=== PATIENT | male | born 1955 | race Caucasian/White ===

== ENCOUNTER 2018-12-18 01:30 | Inpatient (IN) ==
[2018-12-18] MEDS ORDERED: NS 1,000 ML IV SCH ×2 (02:15→05:30)
[2018-12-18 02:41] LABS: BASO# 0.02 X1000 (0.0-0.2); BASO% 0.2 % (0.0-0.8); EOS# 0.03 X1000 (0.0-0.7); EOS% 0.2 % (0.0-10.0); HEMATOCRIT 36.9 % (42.0-52.0); HEMOGLOBIN 14.2 g/dL (14.0-18.0); IMM GRAN# 0.04 X1000 (0.0-0.04); IMM GRAN% 0.3 % (0.0-0.5); LYMPH# 0.88 X1000 (1.2-3.4); LYMPH% 7.3 % (20.5-51.1); MCH 38.6 PG (27-31); MCHC 38.5 g/dL (33-37); MCV 100.3 FL (81-99); MONO# 1.26 X1000 (0.11-0.59); MONO% 10.4 % (1.7-9.3); NEUT# 9.89 X1000 (1.4-6.5); NEUT% 81.6 % (42.2-75.2); PLT 111 X1000 (130-400); RBC 3.68 XMIL (4.7-6.1); RDW 13.2 % (11.5-14.5); WBC 12.12 X1000 (4.8-10.8)
[2018-12-18 02:58] LABS: ESTIMATED GFR > 60
[2018-12-18 02:58] LABS: BILIRUBIN URINE NEGATIVE (NEGATIVE); BLOOD URINE NEGATIVE (NEGATIVE); CLARITY CLEAR (CLEAR); COLOR AMBER; GLUCOSE URINE NEGATIVE (NEGATIVE); KETONE URINE NEGATIVE (NEGATIVE); LEUKOCYTES URINE 1+ (NEGATIVE); NITRITE URINE NEGATIVE (NEGATIVE); PH URINE 6.5; PROTEIN URINE TRACE mg/dL (NEGATIVE); UROBILINOGEN URINE 4 mg/dL
[2018-12-18 03:04] LABS: URINE EPITHELIAL CELLS <10 /HPF (<10); URINE RBC <10 /HPF (<10)
[2018-12-18 03:05] LABS: URINE BACTERIA 4+ /HFP
[2018-12-18 03:06] LABS: URINE SOURCE CLEAN CATCH
[2018-12-18] MEDS: NS 1,000 ML IV ONE ×2 (03:08→05:20)
[2018-12-18 03:18] LABS: AGAP 16; ALBUMIN 2.5 g/dL (3.5-5.0); ALKALINE PHOSPHATASE 78 U/L (32-122); BUN 5 mg/dL (8-22); CALCIUM 8.2 mg/dL (8.8-10.2); CHLORIDE 86 mmol/L (98-107); COSMO 241; CREATININE 0.9 mg/dL (0.7-1.2); GLUCOSE 89 mg/dL (70-104); GOT 76 U/L (10-34); GPT 25 U/L (10-44); POTASSIUM 3.1 mmol/L (3.5-5.1); SODIUM 121 mmol/L (136-145); TCO2 19 mmol/L (25-35); TOTAL PROTEIN 5.3 g/dL (6.3-8.3)
[2018-12-18 03:24] LABS: UR AMPHETAMINES QUAL NONE DETECTED (NONE DETECT); UR BARBITUATES QUAL NONE DETECTED (NONE DETECT); UR BENZODIAZEPIN QUAL NONE DETECTED (NONE DETECT); UR CANNABINOIDS QUAL NONE DETECTED (NONE DETECT); UR COCAINE QUAL NONE DETECTED (NONE DETECT); UR METHADONE QUAL NONE DETECTED (NONE DETECT); UR METHAMPHETAMINE QUAL NONE DETECTED (NONE DETECT); UR OPIATES QUAL NONE DETECTED (NONE DETECT); UR OXYCODONE QUAL NONE DETECTED (NONE DETECT); UR PCP QUAL NONE DETECTED (NONE DETECT); UR PROPOXYPHENE QUAL NONE DETECTED (NONE DETECT); UR TCA QUAL NONE DETECTED (NONE DETECT)
[2018-12-18] MEDS ORDERED: ROCEPHIN 1 GM in NS 50 ML IV ONE (03:26)
[2018-12-18] MEDS ORDERED: NS 1,000 ML IV ONE ×2 (03:29→05:45)
[2018-12-18] MEDS ORDERED: POTASSIUM CHLORIDE 20% LIQUID PO ONE ×2 (03:30→04:05)
--- NOTE | 2018-12-18 03:53 | PROVIDER DOCUMENTATION ---
This chart was entered by Shayy Tanner Scribe, acting as scribe for Olivier Kerr MD. HPI-General Adult - General Stated Complaint: Fall/weakness/vomiting Time Seen by Provider: 12/18/18 01:35 Source: patient Allergies/Adverse Reactions: Patient Allergies Allergy/AdvReac Type Severity Reaction Status Date / Time No Known Allergies Allergy Verified 12/18/18 02:59 Home Medications: Home Medication List Medication Instructions Recorded Confirmed Last Taken Type Ezetimibe 10 mg PO DAILY 12/18/18 12/18/18 12/17/18 History Pravastatin Sodium 40 mg PO DAILY 12/18/18 12/18/18 12/17/18 History - History of Present Illness -Gen Adult Nature of Presenting Problems: pt is a 63 yr old male presenting via EMS from home post fall. pt reports multiple recent falls, tonight after fall he was to weak to get self up. pt reports recent increased weakness. pt john LOC, no chest pain or shortness of breath. Location of Pain/Injury: reports: none (pt denies any pain or injury) Pain Radiation: reports: no radiation Quality of Pain: reports: none Severity: reports: moderate Onset/Duration: reports: gradual Timing: reports: getting worse Context/Activities at Onset: reports: light activity Modifying Factors: improves with: nothing Associated Symptoms: reports: fatigue. denies: arm pain, back/neck pain, chest pain, dizziness, fever/chills, genitourinary problems, headaches, shortness of breath, sensory/motor loss, weakness, trouble walking Similar Symptoms Previously?: Yes Recently seen or treated by another doctor?: No (pt reports he does have scheduled appointment with PCP in next week) Review of Systems - Adult - REVIEW OF SYSTEMS - ADULT Constitutional: reports: maral. denies: fever Eyes: denies: blurred vision, double vision Ears, Nose, Mouth & Throat: denies: ear pain, sinus problem, throat pain Cardiovascular: denies: chest pain, palpitations, syncope Respiratory: denies: cough, shortness of breath, wheezing Gastrointestinal: denies: abdominal pain, diarrhea, nausea, vomiting Genitourinary: reports: no symptoms reported Musculoskeletal: denies: back pain, muscle aches, muscle weakness, neck pain Integumentary: reports: no symptoms reported Neurological: reports: loss of balance. denies: dizziness/vertigo, headache/ migraines, syncope Psychiatric: reports: no symptoms reported Endocrine: reports: no symptoms reported Hematologic/Lymphatic: reports: no symptoms reported Allergic/Immunologic: reports: no symptoms reported All Other Systems: Reviewed and Negative Past History - Adult - PAST MEDICAL HISTORY-ADULT Review of Records: reports: Nursing Assessment Review, Medications Reviewed, Social history reviewed & non-contributory. Major Childhood Illnesses: reports: denies history Cardiovascular: reports: denies history Respiratory: reports: denies history Gastrointestinal: reports: denies history Obstetrical/Gynecological: reports: denies history Genitourinary: reports: denies history Musculoskeletal: reports: denies history Neurological: reports: denies history Endocrine/Immune: reports: denies history Other Conditions: reports: denies history - IMMUNIZATION STATUS Childhood Immunizations: See Nurse Assessment Flu Vaccine: See Nurse Assessment - FAMILY HISTORY Family History: reviewed, not pertinent - SOCIAL HISTORY Living Situation: family Physical Exam-General - PHYSICAL EXAM-ADULT Initial Vital Signs Reviewed: Yes - CONSTITUTIONAL General Appearance: alert, no apparent distress, obese - EYES Eyes: PERRL/EOMI - HEAD, EARS, NOSE, MOUTH & THROAT HENMT: normocephalic/atraumatic, moist mucous membranes - NECK Neck: non-tender, full range of motion, supple, normal inspection - RESPIRATORY Respiratory: chest non-tender, lungs clear, normal breath sounds - CARDIOVASCULAR Cardiovascular: normal peripheral pulses, no edema, no gallop, no JVD, no murmur , tachycardia - GASTROINTESTINAL (ABDOMEN) Abdominal Exam: normal bowel sounds, non tender, soft - LYMPHATIC Lymphatic: no adenopathy - MUSCULOSKELETAL Back Exam: normal inspection Extremity: normal range of motion, non-tender, normal inspection - SKIN Integumentary: normal color, normal turgor, warm/dry, ecchymosis ( 2 areas of ecchymosis each approx 3cm on left gluteous) - PSYCHIATRIC Psych/Mental Status: normal mood/affect, normal thought content, normal thought process, oriented x 3 Progress - PLAN OF CARE/RESULTS Progress/Plan/Lab Results: Vital Signs - 8 hr 12/18/18 01:41 12/18/18 01:58 Temperature 98.7 F 98.7 F Pulse Rate 66 115 H Respiratory Rate 18 18 Blood Pressure 101/58 101/58 O2 Sat by Pulse Oximetry 97 96 Laboratory Results - last 24 hr 12/18/18 12/18/18 12/18/18 02:25 02:25 02:30 WBC 12.12 H RBC 3.68 L Hgb 14.2 Hct 36.9 L MCV 100.3 H MCH 38.6 H MCHC 38.5 H RDW Std Deviation 13.2 Plt Count 111 L MPV 10.0 Immature Gran % (Auto) 0.3 Neut % (Auto) 81.6 H Lymph % (Auto) 7.[address] [place] % (Auto) 10.4 H Eos % (Auto) 0.2 Baso % (Auto) 0.2 Immature Gran # (Auto) 0.04 Neut # (Auto) 9.89 H Lymph # (Auto) 0.[address] [place] # (Auto) 1.26 H Eos # (Auto) 0.03 Baso # (Auto) 0.02 Sodium Potassium Chloride Carbon Dioxide Anion Gap BUN Creatinine Estimated GFR/1.73 m2 BUN/Creatinine Ratio Glucose Calculated Osmolality Calcium Total Bilirubin AST ALT Alkaline Phosphatase Total Protein Albumin Globulin Albumin/Globulin Ratio Urine Source CLEAN CATCH Urine Color MARIOLA Urine Clarity CLEAR Urine pH 6.5 Ur Specific [place] 1.010 Urine Protein TRACE A Urine Ketones NEGATIVE Urine Blood NEGATIVE Urine Nitrite NEGATIVE Urine Bilirubin NEGATIVE Urine Urobilinogen 4 Urine Microscopic RBC <10 Urine WBC 1+ A Urine Microscopic WBC 10-20 A Ur Epithelial Cells <10 Urine Bacteria 4+ Urine Glucose NEGATIVE Urine Opiates Screen NONE DETECTED Ur Oxycodone Screen NONE DETECTED Urine Methadone Screen NONE DETECTED U Propoxyphene Qual NONE DETECTED Ur Barbituates Screen NONE DETECTED Ur Tricyclics Screen NONE DETECTED Ur Phencyclidine Scrn NONE DETECTED Ur Amphetamines Screen NONE DETECTED U Methamphetamines Scrn NONE DETECTED U Benzodiazepines Scrn NONE DETECTED Urine Cocaine Screen NONE DETECTED U Cannabinoids Screen NONE DETECTED 12/18/18 02:30 WBC RBC Hgb Hct MCV MCH MCHC RDW Std Deviation Plt Count MPV Immature Gran % (Auto) Neut % (Auto) Lymph % (Auto) [place] % (Auto) Eos % (Auto) Baso % (Auto) Immature Gran # (Auto) Neut # (Auto) Lymph # (Auto) [place] # (Auto) Eos # (Auto) Baso # (Auto) Sodium 121 L Potassium 3.1 L Chloride 86 L Carbon Dioxide 19 L Anion Gap 16 BUN 5 L Creatinine 0.9 Estimated GFR/1.73 m2 > 60 BUN/Creatinine Ratio 6 Glucose 89 Calculated Osmolality 241 Calcium 8.2 L Total Bilirubin 3.40 H AST 76 H ALT 25 Alkaline Phosphatase 78 Total Protein 5.3 L Albumin 2.5 L Globulin 3.0 Albumin/Globulin Ratio 1.0 Urine Source Urine Color Urine Clarity Urine pH Ur Specific [place] Urine Protein Urine Ketones Urine Blood Urine Nitrite Urine Bilirubin Urine Urobilinogen Urine Microscopic RBC Urine WBC Urine Microscopic WBC Ur Epithelial Cells Urine Bacteria Urine Glucose Urine Opiates Screen Ur Oxycodone Screen Urine Methadone Screen U Propoxyphene Qual Ur Barbituates Screen Ur Tricyclics Screen Ur Phencyclidine Scrn Ur Amphetamines Screen U Methamphetamines Scrn U Benzodiazepines Scrn Urine Cocaine Screen U Cannabinoids Screen Orders Category Date Time Status CHEST-PORTABLE [RAD] Stat Exams 12/18/18 02:04 Taken CBC WITH DIFF [HEME] Stat Lab 12/18/18 02:30 Completed COMPREHENSIVE METABOLIC PANEL [CHEM] Stat Lab 12/18/18 02:[address] W/POSS RFLX CULT [URINALYSIS] Stat Lab 12/18/18 02:25 Completed URINE CULTURE [RM] Routine Lab 12/18/18 03:07 Ordered [address] DRUG SCREEN [address] Stat Lab 12/18/18 02:25 Completed 0.9% Sodium Chloride Inj [Ns] 1,000 ml Med 12/18/18 02:15 Active IV 1,000 mls/hr 0.9% Sodium Chloride Inj [Ns] 1,000 ml Med 12/18/18 02:06 Active IV 200 mls/hr Rocephin 1 gm/Ns IV Now Med 12/18/18 03:26 Ordered CefTRIAXONE [Rocephin] 1 gm 0.9% Sodium Chloride Inj [Ns] 50 ml IV NOW Result Diagrams: 12/18/18 02:30 12/18/18 02:30 - EKG 1 Time of EKG reading by physician:: 01:51 EKG Read and Signed by:: Olivier Kerr EKG Interpretation (*Must complete 3 of following elements*): Abnormal (can not rule out anteroseptal infarct-age undetermined) Rate: 119 Rhythm: sinus tachycardia with PACs with aberrant conduction Pyatt: left QRS: other (low voltage QRS) - CONSULTS/PCP/HOSPITALIST Notification #1 *Consult/PCP/Hospitalist*: [place] Time Discussed: 03:53 Consult Disposition: Admit Departure - Departure Date of Disposition Decision: 12/18/18 Time of Disposition Decision: 03:27 DIAGNOSIS: Hyponatremia, Weakness, Hypokalemia Urinary tract infection Qualifiers: Urinary tract infection type: site unspecified Hematuria presence: without hematuria Qualified Code(s): N39.0 - Urinary tract infection, site not specified Hypotension Qualifiers: Hypotension type: unspecified hypotension type Qualified Code(s): I95.9 - Hypotension, unspecified Disposition: ADMITTED INPATIENT 09 Certified Medical Emergency: Emergent Condition: Fair Referrals and Follow-Ups: None,PCP [Primary Care Provider] - - Critical Care Note This patient required my direct & personal management of CC.: No Attestation - Physician/ PEDRO Attestation Patient care was provided by Advanced Practice Provider:: No The physician spent face to face time with patient:: Yes Advanced Practice Provider documentation review:: Supervising physician onsite and consulted in the evaluation and care of this patient. The physician did have a face to face encounter with the patient. This chart was documented by the indicated scribe, (Shayy Tanner Scribe) and accurately reflects the services I performed and decisions made by me, Olivier Kerr MD, as attested by the provider's signature.
[2018-12-18] MEDS ORDERED: ZOFRAN IV PRN (03:55)
--- NOTE | 2018-12-18 03:57 | EKG Report ---
Test Performed on : 12/18/2018 01:51:34 AM Test Reason : weakness Blood Pressure : / mmHG Vent. Rate : 119 BPM Atrial Rate : 119 BPM P-R Int : 150 ms QRS Dur : 102 ms QT Int : 344 ms P-R-T Axes : 011 -32 009 degrees QTc Int : 483 ms Sinus tachycardia. with premature atrial complexes. with aberrant conduction. Left axis deviation Low voltage QRS Cannot rule out Anteroseptal infarct , age undetermined Abnormal ECG No previous ECGs available Unconfirmed Result
[2018-12-18] MEDS ORDERED: ZOFRAN ONE (04:08)
[2018-12-18] MEDS ORDERED: POTASSIUM CHLORIDE 20 MEQ/SWI 20 MEQ/100 ML IVPB IV ONE (05:17)
--- NOTE | 2018-12-18 06:17 | Diag Imaging Result Doc PS360 ---
EXAM: CHEST-PORTABLE HISTORY: weakness TECHNIQUE: Portable chest single view COMPARISON: None. FINDINGS: The lungs are well expanded. The heart is not enlarged. The vessels are not distended. There are no infiltrates. No effusion identified. IMPRESSION: Negative exam. Electronically signed by Jefferson Boone 12/18/2018 6:15 AM
[2018-12-18] MEDS ORDERED: POTASSIUM CHLORIDE 20% LIQUID PO SCH (08:00)
[2018-12-18 09:06] LABS: AGAP 10; BUN 5 mg/dL (8-22); CALCIUM 7.8 mg/dL (8.8-10.2); CHLORIDE 91 mmol/L (98-107); COSMO 247; CREATININE 0.8 mg/dL (0.7-1.2); ESTIMATED GFR > 60; GLUCOSE 94 mg/dL (70-104); POTASSIUM 3.8 mmol/L (3.5-5.1); SODIUM 124 mmol/L (136-145); TCO2 23 mmol/L (25-35)
--- NOTE | 2018-12-18 11:04 | HISTORY AND PHYSICAL ---
CHIEF COMPLAINT: Multiple falls, generalized weakness. HISTORY OF PRESENT ILLNESS: This is a 63-year-old gentleman with a history of hypertension, who presents to the emergency room complaining of multiple falls over the prior few weeks. He stated that these have increased over the last week. Prior to coming to the emergency room, he was too weak to get himself up out of the floor. Therefore, EMS was called. He did state that he has been vomiting off and on for 2 months, and he has had no workup, nor has he seen a physician about this. He was found to have a sodium of 121, as well as a potassium of 3.1. It is noted that he is on hydrochlorothiazide. He was given saline as well as potassium supplement, and is being admitted for further evaluation and treatment. PAST MEDICAL HISTORY: Hypertension, high cholesterol. SOCIAL HISTORY: He smokes about a pack a day. He does drink alcohol. He denies any illicit drug use. ALLERGIES: Corticosteroids with unknown reaction. HOME MEDICATIONS: Losartan/hydrochlorothiazide 100/25 one p.o. daily, pravastatin 40 mg p.o. daily. REVIEW OF SYSTEMS: Discussed with patient, with pertinent positives stated in the HPI. He denied any syncope or dizziness, any chest pain, any palpitations, any shortness of breath, cough, fever, chills, any night sweats, recent weight loss or weight gain, any diarrhea, constipation, black or bloody vomitus or stools, hematuria, dysuria, frequency, urgency. PHYSICAL EXAMINATION: General: This is a 63-year-old gentleman who is sitting up in the bed, eating breakfast in no distress. Vital Signs: Blood pressure is 113/63 with a heart rate of 100, respirations are 18, temperature is 98.6 degrees oral with room air saturations 98%. Eyes: Pupils are equal, round, react to light. EOMs are intact. Sclerae are anicteric. HENT: Head is normocephalic, atraumatic. Mucous membranes are moist. Neck: Supple with trachea midline. Cardiovascular: Regular rate and rhythm. S1, S2 appreciated. He does have bilateral lower extremity pretibial and pedal edema with peripheral pulses palpable x4 extremities. Pulmonary: Breath sounds are clear with no increased work of breathing noted. Chest rises and falls symmetrically with respiration. Gastrointestinal: Abdomen is soft, nontender, nondistended with bowel sounds in all 4 quadrants. Neurologic: He is alert and oriented x3. Skin: Warm and dry. IMAGING AND LABORATORY DATA: WBC is 12.12 with hemoglobin 14.2, hematocrit 36.9, and platelets of 111,000. Sodium is 121, potassium 3.1, BUN 5, creatinine 0.9 with a glucose of 89. Urinalysis reveals 10 to 20 microscopic white blood cells. Urine drug screen reveals none detected. Chest x- ray reveals negative exam. Lungs are well expanded. Heart is not enlarged. Vessels are not distended. There are no infiltrates. No effusion identified. ASSESSMENT: 1. Generalized weakness. 2. Multiple falls. 3. Hyponatremia. 4. Hypokalemia. 5. Urinary tract infection. 6. Hypertension. 7. High cholesterol. PLAN: The patient has been admitted to the medical/surgical floor and placed on telemetry, which will continue. We will recheck a BMP every 6 hours x3. Will get a CBC and CMP and magnesium in the morning. Will continue with gentle IV hydration. Urine culture is pending. Will continue Rocephin every 24 hours. Will consult Physical Therapy. For DVT prophylaxis, we will use SCDs, holding off on any anticoagulation as he has had multiple falls, and for GI prophylaxis, will use Prilosec. Further treatments pending hospital course. Dictated by CHANCE Real for Germain Gamez MD This chart was documented by, CHANCE Real and accurately reflects the services performed, treatment plan and medical decisions as attested by the providers signature Germian Gamez MD. cc: CHANCE Real MD
[2018-12-18] MEDS: ROCEPHIN 1 GM in NS 50 ML IV SCH (11:24)
[2018-12-18] MEDS: NS 1,000 ML IV SCH (11:31)
[2018-12-18] MEDS ORDERED: CALMOSEPTINE OINTMENT TOP PRN (13:08)
[2018-12-18 15:08] LABS: AGAP 10; BUN 5 mg/dL (8-22); CALCIUM 7.9 mg/dL (8.8-10.2); CHLORIDE 93 mmol/L (98-107); COSMO 249; CREATININE 0.7 mg/dL (0.7-1.2); ESTIMATED GFR > 60; GLUCOSE 111 mg/dL (70-104); POTASSIUM 3.7 mmol/L (3.5-5.1); SODIUM 125 mmol/L (136-145); TCO2 22 mmol/L (25-35)
[2018-12-18] MEDS ORDERED: ROCEPHIN 1 GM in NS 50 ML IV SCH (16:00)
[2018-12-18] MEDS ORDERED: TYLENOL PO PRN ×2 (18:26→18:52)
[2018-12-18 20:43] LABS: AGAP 9; BUN 5 mg/dL (8-22); CALCIUM 7.8 mg/dL (8.8-10.2); CHLORIDE 96 mmol/L (98-107); COSMO 252; CREATININE 0.7 mg/dL (0.7-1.2); ESTIMATED GFR > 60; GLUCOSE 97 mg/dL (70-104); POTASSIUM 3.7 mmol/L (3.5-5.1); SODIUM 127 mmol/L (136-145); TCO2 22 mmol/L (25-35)
--- NOTE | 2018-12-19 00:11 | HISTORY AND PHYSICAL ---
ADDENDUM: Patient seen and examined by myself, full note dictated and discussed with nurse practitioner. Patient has multiple falls recently. He is noted to have significant hyponatremia and mild hypokalemia. We will admit to the hospital, IV fluids, recheck his sodium, hold his losartan hydrochlorothiazide, follow his blood pressures. Further orders as needed. Please see full dictation. cc: Germain Gamez MD
[2018-12-19] MEDS: NS 1,000 ML IV SCH ×2 (00:46→15:18)
[2018-12-19] MEDS: PRILOSEC PO SCH (06:31)
[2018-12-19 06:44] LABS: HEMATOCRIT 34.4 % (42.0-52.0); MCH 39.3 PG (27-31); MCHC 37.8 g/dL (33-37); MCV 103.9 FL (81-99); RBC 3.31 XMIL (4.7-6.1); RDW 13.7 % (11.5-14.5); WBC 9.43 X1000 (4.8-10.8)
[2018-12-19 06:59] LABS: AGAP 10; ALBUMIN 2.1 g/dL (3.5-5.0); ALKALINE PHOSPHATASE 65 U/L (32-122); BUN 4 mg/dL (8-22); CALCIUM 7.8 mg/dL (8.8-10.2); CHLORIDE 97 mmol/L (98-107); COSMO 254; CREATININE 0.5 mg/dL (0.7-1.2); ESTIMATED GFR > 60; GLUCOSE 73 mg/dL (70-104); GOT 76 U/L (10-34); GPT 23 U/L (10-44); MAGNESIUM 1.6 mg/dL (1.5-2.7); POTASSIUM 3.6 mmol/L (3.5-5.1); SODIUM 129 mmol/L (136-145); TCO2 22 mmol/L (25-35); TOTAL PROTEIN 4.8 g/dL (6.3-8.3)
[2018-12-19] MEDS: ROCEPHIN 1 GM in NS 50 ML IV SCH (09:48)
[2018-12-19 11:16] LABS: AGAP 9; BUN 5 mg/dL (8-22); CALCIUM 7.8 mg/dL (8.8-10.2); CHLORIDE 97 mmol/L (98-107); COSMO 258; CREATININE 0.6 mg/dL (0.7-1.2); ESTIMATED GFR > 60; GLUCOSE 125 mg/dL (70-104); POTASSIUM 3.4 mmol/L (3.5-5.1); SODIUM 129 mmol/L (136-145); TCO2 23 mmol/L (25-35)
[2018-12-19 14:30] LABS: AGAP 7; BUN 5 mg/dL (8-22); CHLORIDE 98 mmol/L (98-107); COSMO 258; CREATININE 0.5 mg/dL (0.7-1.2); ESTIMATED GFR > 60; GLUCOSE 95 mg/dL (70-104); POTASSIUM 4.3 mmol/L (3.5-5.1); SODIUM 130 mmol/L (136-145); TCO2 25 mmol/L (25-35)
--- NOTE | 2018-12-19 15:53 | Diag Imaging Result Doc PS360 ---
US ABDOMEN-COMPLETE - 12/19/2018 INDICATION: elevated T bili TECHNIQUE: Pizano scale, color Doppler, and duplex evaluation of the abdomen was performed. COMPARISON: None FINDINGS: The liver appears somewhat small and hyperechoic. There is moderate ascites suspicious for cirrhosis and portal hypertension. No focal masses are appreciated sonographically. The IVC and aorta appear normal. The pancreas is unremarkable although the tail is obscured. The gallbladder is free of stones and sludge has a normal caliber wall. The common bile duct is not identified. The portal vein is patent with hepatopetal flow. Spleen is enlarged measuring 13.9 x 4.7 x 13.7 cm. The kidneys appear normal bilaterally. There is no hydronephrosis. IMPRESSION: 1.Hyperechoic liver with splenomegaly and moderate ascites are suggestive of portal hypertension . 2.No cholelithiasis. The common bile duct is unable be identified. Electronically signed by Patricia Dee 12/19/2018 3:51 PM
--- NOTE | 2018-12-19 23:34 | PROGRESS NOTE ---
DATE: 12/19/2018 SUBJECTIVE: Patient himself has no complaints. There is no family currently present. Denies any chest pain. Denies any shortness of breath. OBJECTIVE/PHYSICAL EXAM: Vital signs: Temperature 94, pulse 76, respiratory 20, BP 91/66. General: Patient is very pleasant to talk with. HEENT: Normocephalic. Neck: Supple. CARDIOVASCULAR: Regular rate. Chest: Clear. Abdomen: Soft. Extremities: Moves all extremities. Neurologic: No changes. ASSESSMENT: 1. Generalized weakness. 2. Multiple falls. 3. Hyponatremia, improved. Sodium is up to 130. 4. Hypokalemia. 5. Urinary tract infection. 6. Hypertension. PLAN: We will continue patient in the hospital. He has got an elevated total bilirubin of undetermined origin. His original was 3.1, currently down to 2.8. Ultrasound did not demonstrate anything other than portal hypertension. We will discuss with GI further plans. cc: Germain Gamez MD
[2018-12-20] MEDS: NS 1,000 ML IV SCH (05:36)
[2018-12-20] MEDS: PRILOSEC PO SCH (06:50)
[2018-12-20 08:53] LABS: HEMATOCRIT 35.6 % (42.0-52.0); HEMOGLOBIN 13.2 g/dL (14.0-18.0); MCH 38.2 PG (27-31); MCHC 37.1 g/dL (33-37); MCV 102.9 FL (81-99); RBC 3.46 XMIL (4.7-6.1); RDW 13.8 % (11.5-14.5); WBC 9.42 X1000 (4.8-10.8)
[2018-12-20 09:09] LABS: AGAP 10; ALBUMIN 2.4 g/dL (3.5-5.0); ALKALINE PHOSPHATASE 71 U/L (32-122); BUN 6 mg/dL (8-22); CHLORIDE 100 mmol/L (98-107); COSMO 261; CREATININE 0.5 mg/dL (0.7-1.2); ESTIMATED GFR > 60; GLUCOSE 77 mg/dL (70-104); GOT 97 U/L (10-34); GPT 29 U/L (10-44); POTASSIUM 3.9 mmol/L (3.5-5.1); SODIUM 132 mmol/L (136-145); TCO2 22 mmol/L (25-35)
[2018-12-20] MEDS: ROCEPHIN 1 GM in NS 50 ML IV SCH (12:10)
[2018-12-20 16:26] VITALS: BP 118/53
--- NOTE | 2018-12-21 00:06 | DISCHARGE SUMMARY ---
ADMISSION DATE: 12/18/2018 DISCHARGE DATE: 12/20/2018 DIAGNOSES: 1. Generalized weakness. 2. Multiple falls. 3. Hyponatremia, resolved. 4. Hypokalemia, resolved. 5. Urinary tract infection. 6. Hypertension. 7. High cholesterol. DIAGNOSTICS: 1. Chest x-ray revealed negative exam. Lungs are well expanded. Heart is not enlarged. Vessels are not distended. There are no infiltrates. No effusion identified. 2. Abdominal ultrasound revealed hyperechoic liver with splenomegaly and moderate ascites, are suggestive of portal hypertension. No cholelithiasis. The common bile duct is unable to be identified. 3. Urine culture revealed mixed elisabeth. HOSPITAL COURSE: Mr. Montoya presented to the emergency room complaining of multiple falls and generalized weakness. He was found to be hyponatremic. We held his diuretics as well as renal toxic medications. His sodium has increased from 121 to 132. He worked with Physical Therapy with a walker. He was able to ambulate 250 feet. A walker has been obtained for the patient. He states that his strength has increased and he feels more steady on his feet especially with the walker. DISCHARGE VITAL SIGNS: Blood pressure is 118/53 with a heart rate of 68, respirations 16, temperature 98.9 degrees with room air saturations 99%. DISCHARGE PHYSICAL EXAMINATION: Cardiovascular: Regular rate and rhythm. S1, S2 appreciated. He has no lower extremity edema. Peripheral pulses palpable x4 extremities. Pulmonary: Breath sounds are clear with no increased work of breathing noted. Gastrointestinal: Abdomen is soft, nontender, nondistended with bowel sounds in all 4 quadrants. Neurologic: He is alert and oriented. DISCHARGE MEDICATIONS: 1. Omnicef 300 mg p.o. b.i.d. 2. He has been instructed to hold his losartan/hydrochlorothiazide 100/25 as well as pravastatin 40 mg daily. Appointments will be made with Dr. Vora for the next week. At that time, he can have labs redrawn and Dr. Vora can give him guidance on restarting these medications. 3. He needs to follow up Dr. Calhoun for evaluation of his elevated bilirubin and his ultrasound results. Appointment will be scheduled and the patient will be called and notified of the time. 4. He has been instructed to call to be seen sooner or return to the emergency room for any dizziness, any increasing weakness, any syncope, any chest pain, palpitations, shortness of breath, cough, temperature greater than 101, any nausea, vomiting, diarrhea, constipation, black or bloody vomitus or stools, any hematuria, dysuria, frequency, urgency. 5. He is being discharged home in stable condition with family members. TIME SPENT: This is a greater than 30 minute discharge. Dictated by CHANCE Real for Germain Gamez MD This chart was documented by, CHANCE Real and accurately reflects the services performed, treatment plan and medical decisions as attested by the providers signature Germain Gamez MD. cc: CHANCE Real MD Dr Arora
--- NOTE | 2018-12-21 02:38 | DISCHARGE SUMMARY ---
ADMISSION DATE: 12/18/2018 DISCHARGE DATE: 12/20/2018 ADDENDUM: Patient seen and examined by myself. Full note dictated and discussed with nurse practitioner. On discharge, patient is awake, alert. He is in no distress. He is able to ambulate when he has a walker. We will discharge him home. Certainly would have preferred rehab but patient has declined. States he is going to go home. His sodium level is much improved, currently up to 132. Bilirubin is improving although still elevated. Discussed with him that he needs follow up outpatient with GI of choice. Please see full note. cc: Germain Gamez MD
== END 2018-12-20 18:35 | disposition home health service (06) | DRG 641 ==
LOC: P.ED 01:30 → P.MEDSURG 01:30 → OBSVTOIN 01:31 → SUATTDRO 01:31
PROVIDERS: ATTEND Family Medicine
CPT/HCPCS: 36415; 71010; 71045; 76700; 80048; 80053; 80104; 80301; 80305; 80307; 80320; 81001; 82055; 83605; 83735; 85025; 85027; 87088; 93005; 96361; 96365; 96375; 97162; 97530; 99285; A9270; G0431; G0434; G0477; G0480; G6040; J0696; J2405; J3480; J7030

== ENCOUNTER 2019-01-01 11:56 | Inpatient (IN) ==
--- NOTE | 2019-01-01 13:14 | PROVIDER DOCUMENTATION ---
This chart was entered by Hillary Olvera Scribe, acting as scribe for Faith Mercer CRNP. HPI-General Adult - General Chief Complaint: Return/Recheck Stated Complaint: MALE Time Seen by Provider: 01/01/19 12:33 Source: patient Allergies/Adverse Reactions: Patient Allergies Allergy/AdvReac Type Severity Reaction Status Date / Time Corticosteroids AdvReac Unknown Verified 12/25/18 09:11 (Glucocorticoids) Home Medications: Home Medication List Medication Instructions Recorded Confirmed Last Taken Type CefDINIR [Omnicef] 300 mg PO BID #10 cap 12/20/18 Unknown Rx - History of Present Illness -Gen Adult Nature of Presenting Problems: 63 yom pt dcd from hospital c/o increase weakness and request to go to rehab. c /o swelling to abd and lower legs also. Pt reports he was admitted on the for weakness and uti. Reports on the . Returns today and wants rehab. Reports sees Dr. Vora and has Ascites. Reports stopped alcohol 2 weeks ago. Review of Systems - Adult - REVIEW OF SYSTEMS - ADULT Constitutional: reports: see HPI, other (generalized weakness). denies: fever, fatique, night sweats Eyes: reports: no symptoms reported Ears, Nose, Mouth & Throat: denies: ear pain, sinus problem, throat pain Cardiovascular: reports: no symptoms reported Respiratory: denies: cough, shortness of breath, wheezing Gastrointestinal: reports: see HPI. denies: abdominal pain, diarrhea, nausea, vomiting Genitourinary: denies: dysuria, frequency, flank pain, frequent UTI's, hematuria Musculoskeletal: denies: bone pain, joint pain, joint swelling Integumentary: denies: mole changes, nail changes, rash Neurological: reports: no symptoms reported Psychiatric: reports: no symptoms reported Endocrine: reports: no symptoms reported Hematologic/Lymphatic: reports: no symptoms reported Allergic/Immunologic: reports: no symptoms reported All Other Systems: Reviewed and Negative Past History - Adult - PAST MEDICAL HISTORY-ADULT Review of Records: reports: Nursing Assessment Review, Medications Reviewed Major Childhood Illnesses: reports: denies history Cardiovascular: reports: denies history Respiratory: reports: denies history Gastrointestinal: reports: denies history Obstetrical/Gynecological: reports: denies history Genitourinary: reports: denies history Musculoskeletal: reports: denies history Neurological: reports: denies history Endocrine/Immune: reports: denies history Other Conditions: reports: denies history - IMMUNIZATION STATUS Childhood Immunizations: See Nurse Assessment Flu Vaccine: See Nurse Assessment - FAMILY HISTORY Family History: reviewed, not pertinent - SOCIAL HISTORY Smoking: less than 1 pack/day Provider spent 3-5 mins advising pt. on dangers of tobacco.: Discussed manners to quit use, and f/u contacts for add'l counseling. Substance Use: other (no) Physical Exam-General - PHYSICAL EXAM-ADULT Initial Vital Signs Reviewed: Yes - CONSTITUTIONAL General Appearance: alert, mild distress - EYES Eyes: PERRL/EOMI, other (jaundice) - HEAD, EARS, NOSE, MOUTH & THROAT HENMT: moist mucous membranes - NECK Neck: non-tender, full range of motion, supple, normal inspection - RESPIRATORY Respiratory: chest non-tender, lungs clear, normal breath sounds, no pleuratic chest pain, no respiratory distress, no accessory muscle use - CARDIOVASCULAR Cardiovascular: regular rate, rhythm, no edema, no gallop, no JVD - GASTROINTESTINAL (ABDOMEN) Abdominal Exam: other ([place]) - LYMPHATIC Lymphatic: no adenopathy - MUSCULOSKELETAL Extremity: normal range of motion, pedal edema (BLE from knees down 1+ pitting) - SKIN Integumentary: normal turgor, warm/dry, jaundice (global) - NEUROLOGIC Neurologic: grossly normal - PSYCHIATRIC Psych/Mental Status: normal mood/affect, normal thought content, normal thought process, oriented x 3 Progress - PLAN OF CARE/RESULTS Progress/Plan/Lab Results: Vital Signs - 8 hr 01/01/19 12:00 Temperature 98.4 F Pulse Rate 98 H Respiratory Rate 20 Blood Pressure 137/74 O2 Sat by Pulse Oximetry 99 Orders Category Date Time Status Saline Loc NOW Care 01/01/19 12:41 Active CHEST-2 VIEWS [RAD] Stat Exams 01/01/19 12:42 Ordered ALCOHOL BLOOD Stat Lab 01/01/19 12:43 Ordered CBC WITH ELECTRONIC DIFF [HEME] Stat Lab 01/01/19 12:41 Ordered CK PROFILE [SP CHEM] Stat Lab 01/01/19 12:41 Ordered COMPREHENSIVE METABOLIC PANEL [CHEM] Stat Lab 01/01/19 12:41 Ordered LIPASE [CHEM] Stat Lab 01/01/19 12:41 Ordered PRO B-NATRIURETIC PEPTIDE Stat Lab 01/01/19 12:41 Ordered TROPONIN T Stat Lab 01/01/19 12:[address] W/POSS RFLX CULT [URINALYSIS] Stat Lab 01/01/19 12:41 Uncollected EKG [EKG] Stat Ther 01/01/19 12:41 Ordered Result Diagrams: 01/01/19 12:50 01/01/19 12:50 - EKG 1 Time of EKG reading by physician:: 13:26 EKG Read and Signed by:: Argelia Olvera EKG Interpretation (*Must complete 3 of following elements*): Abnormal (cannot rule out Anteroseptal infarct age undertermined) Rate: 85 Rhythm: nsr [place]: normal QRS: other (low voltage) [place] Interval: normal ST Wave: normal - XRAY 1 XRAY Study: Chest ([facility] [address] [place] [address], [address], [place] [address] Department of Imaging Patient: ARGELIA BACA ODISADM Date: 01/01#: [id number] : 1955DM Status: PRE ERAcct#: [id number] Age/Sex : 63/MRoom/Bed: Loc: P.ED Ordering Physician: Faith Mercer Family Physician: James Vora DO Reason for Procedure: SOB Signed EXAM: CHEST-2 VIEWS 01/01/2019 HISTORY: SOB TECHNIQUE: PA and lateral chest COMMENT: There is bibasilar subsegmental atelectasis particularly in the costophrenic angle regions. Compared to 12/25/2018 this is slightly worse on the right. IMPRESSION: Bibasilar subsegmental atelectasis. Electronically signed by Adeel Hummel 01/01/2019 1:16 PM 01/01/19 1316 Interpreting Physician: Adeel Hummel MD Dictated Date/Time: 01/01/19 1315 cc: Faith Mercer; James Vora DO) XRAY Interpretation: See note - CONSULTS/PCP/HOSPITALIST Notification #1 *Consult/PCP/Hospitalist*: Dr. Gamez Time Discussed: 15:34 Reason/Comments: Admit Consult Disposition: Admit Departure - Departure Date of Disposition Decision: 01/01/19 Time of Disposition Decision: 15:34 DIAGNOSIS: Total bilirubin, elevated, Falls frequently, Elevated LFTs, Elevated brain natriuretic peptide (BNP) level Anemia Qualifiers: Anemia type: unspecified type Qualified Code(s): D64.9 - Anemia, unspecified Ascites Qualifiers: Ascites type: due to alcoholic cirrhosis Qualified Code(s): K70.31 - Alcoholic cirrhosis of liver with ascites Disposition: HOME 01 Certified Medical Emergency: Emergent Condition: Stable Referrals and Follow-Ups: James Vora DO [Primary Care Provider] - - Critical Care Note This patient required my direct & personal management of CC.: No Attestation - Physician/ PEDRO Attestation Patient care was provided by Advanced Practice Provider:: Yes Advanced Practice Provider:: Faith Mercer Advanced Practice Provider documentation review:: The Mid-level provider documentation, treatment plan and medical decision making was reviewed by the physician who agrees with all treatment and medical decision making by the P. The physician spent face to face time with patient:: No Advanced Practice Provider documentation review:: Supervising physician onsite and consulted in the evaluation and care of this patient. The physician did not have a face to face encounter with the patient. This chart was documented by the indicated scribe, (Hillary Olvera Scribe) and accurately reflects the services I performed and decisions made by me, Faith Mercer CRNP, as attested by the provider's signature.
--- NOTE | 2019-01-01 13:18 | Diag Imaging Result Doc PS360 ---
EXAM: CHEST-2 VIEWS 01/01/2019 HISTORY: SOB TECHNIQUE: PA and lateral chest COMMENT: There is bibasilar subsegmental atelectasis particularly in the costophrenic angle regions. Compared to 12/25/2018 this is slightly worse on the right. IMPRESSION: Bibasilar subsegmental atelectasis. Electronically signed by Adeel Hummel 01/01/2019 1:16 PM
[2019-01-01 13:22] LABS: BASO# 0.04 X1000 (0.0-0.2); BASO% 0.4 % (0.0-0.8); EOS% 4.3 % (0.0-10.0); HEMATOCRIT 35.4 % (42.0-52.0); HEMOGLOBIN 12.8 g/dL (14.0-18.0); IMM GRAN# 0.06 X1000 (0.0-0.04); IMM GRAN% 0.6 % (0.0-0.5); LYMPH# 1.72 X1000 (1.2-3.4); LYMPH% 18.5 % (20.5-51.1); MCH 38.1 PG (27-31); MCHC 36.2 g/dL (33-37); MCV 105.4 FL (81-99); MONO# 1.64 X1000 (0.11-0.59); MONO% 17.7 % (1.7-9.3); MPV 9.3 FL (7.4-10.4); NEUT# 5.43 X1000 (1.4-6.5); NEUT% 58.5 % (42.2-75.2); PLT 280 X1000 (130-400); RBC 3.36 XMIL (4.7-6.1); RDW 14.7 % (11.5-14.5); WBC 9.29 X1000 (4.8-10.8)
[2019-01-01 13:45] LABS: AGAP 11; ALBUMIN 2.6 g/dL (3.5-5.0); ALKALINE PHOSPHATASE 74 U/L (32-122); BUN 8 mg/dL (8-22); CALCIUM 8.5 mg/dL (8.8-10.2); CHLORIDE 100 mmol/L (98-107); CK PROFILE 69 U/L (24-204); COSMO 269; CREATININE 0.5 mg/dL (0.7-1.2); ESTIMATED GFR > 60; GLUCOSE 112 mg/dL (70-104); GOT 119 U/L (10-34); GPT 54 U/L (10-44); LIPASE 32 U/L (13-60); SODIUM 135 mmol/L (136-145); TCO2 25 mmol/L (25-35); TOTAL PROTEIN 5.5 g/dL (6.3-8.3)
[2019-01-01 13:55] LABS: BILIRUBIN URINE NEGATIVE (NEGATIVE); BLOOD URINE NEGATIVE (NEGATIVE); CLARITY SL. CLOUDY (CLEAR); COLOR YELLOW; GLUCOSE URINE NEGATIVE (NEGATIVE); KETONE URINE NEGATIVE (NEGATIVE); LEUKOCYTES URINE NEGATIVE (NEGATIVE); NITRITE URINE NEGATIVE (NEGATIVE); PROTEIN URINE NEGATIVE (NEGATIVE); UROBILINOGEN URINE 4 mg/dL
[2019-01-01 14:08] LABS: URINE BACTERIA 1+ /HFP; URINE EPITHELIAL CELLS <10 /HPF (<10); URINE WBC <10 /HPF (<10); URINE YEAST NONE SEEN /HPF
[2019-01-01 14:09] LABS: URINE CAST NONE SEEN /LPF; URINE CRYSTAL URIC ACID PRESENT /HPF; URINE SOURCE CLEAN CATCH
--- NOTE | 2019-01-01 14:21 | EKG Report ---
Test Performed on : 01/01/2019 1:26:04 PM Test Reason : SOB Blood Pressure : / mmHG Vent. Rate : 085 BPM Atrial Rate : 085 BPM P-R Int : 148 ms QRS Dur : 084 ms QT Int : 404 ms P-R-T Axes : 027 -24 001 degrees QTc Int : 480 ms Normal sinus rhythm. Low voltage QRS Cannot rule out Anteroseptal infarct , age undetermined Abnormal ECG No previous ECGs available Unconfirmed Result
[2019-01-01] MEDS ORDERED: SODIUM CHLORIDE 0.9% INJ SCH (18:30)
--- NOTE | 2019-01-01 18:34 | HISTORY AND PHYSICAL ---
CHIEF COMPLAINT: Is lower extremity edema, abdominal swelling and anorexia. HISTORY OF PRESENT ILLNESS: This is a 63-year-old gentleman with a history of hypertension, high cholesterol as well as moderate ascites and portal hypertension. He was discharged from [facility] on December 20, at that time we had strongly encouraged that he go to rehab. He did refuse. He states that he has had just increasing weakness since discharge, he has had increased abdominal and lower extremity edema and he feels that he needs rehab or further care. He does have a history of alcohol use and he states he did stop drinking 2 weeks ago although is not forthcoming on how much that he drank leading up to this. He does state that he has had anorexia and that this is increased over the last 2 to 3 weeks. The family members at the bedside state that they have to force him to eat and at that time he could only eat bites. He is noted to have some skin and sclerae jaundice. Family members stated that they were unaware of this, this was not present on his discharge December 20. Of note the patient does have an appointment to follow up with Dr. Calhoun on January 18 at 1:30, the stated that the patient has had diarrhea over the last 2 weeks. The patient seems surprised about the. PAST MEDICAL HISTORY: Hypertension, high cholesterol, cirrhosis, portal hypertension. PAST SURGICAL HISTORY: Denies. SOCIAL HISTORY: He smokes a pack a day, at 1 time he stated he quit alcohol 2 weeks ago another time he stated that he drinks alcohol daily. He denies any illicit drug use. ALLERGIES: Cortical steroids with unknown reaction. HOME MEDICATIONS: Lasix 20 mg p.o. daily, Klor-Con 10 mEq p.o. daily, losartan hydrochlorothiazide 100/25 daily. REVIEW OF SYSTEMS: Discussed with patient with pertinent positives stated in the HPI. He denied any syncope, dizziness, any chest pain, any palpitations, any shortness of breath, cough, fever, chills, any night sweats any abdominal pain, constipation, nausea, vomiting, any black or bloody vomitus or stools, any hematuria, dysuria, frequency, urgency. PHYSICAL EXAMINATION: GENERAL: This is a 63-year-old gentleman who is lying in the bed on the stretcher in the emergency room in no distress. VITAL SIGNS: Blood pressure is 119/69 with a heart rate of 85, respirations are 18, temperature is 97.9 degrees oral with O2 saturation 96% to 100%. HEENT: Pupils are equal, round, react to light. EOMs are intact. Sclerae have noted icterus. Head is normocephalic, atraumatic. Mucous membranes are moist. NECK: Supple with trachea midline. CARDIOVASCULAR: Regular rate and rhythm. S1 and S2 appreciated. He does have 2 to 3+ pitting edema from just above his knees down with peripheral pulses palpable x4 extremities. Calves are nontender to palpation. PULMONARY: Breath sounds are clear with no increased work of breathing noted. Chest rises and falls symmetric with respiration. ABDOMEN: Large, it is taut, is nontender with bowel sounds in all 4 quadrants. SKIN: Warm and dry. He does have jaundice with bilateral lower extremities from the knee down are reddened. NEUROLOGIC: He is alert, he is oriented to person, place, family members, but he does get confused on details. LABS: WBC is 9.2 with a hemoglobin 12.8, hematocrit 35.4, platelets of 280,000. Sodium is 135, potassium 4, BUN 8, creatinine 0.5, glucose of 112, total bilirubin is 2.9 with AST 119, ALT 54, and alkaline phosphatase 74. Troponin is less than 0.010. Total protein is 5.5 with albumin 2.6. Urinalysis is essentially negative. Blood alcohol reveals none detected. Chest x-ray reveals bibasilar subsegmental atelectasis which is slightly worse on the right than 12/25/2018. ASSESSMENT AND PLAN: 1. Elevated liver function tests. 2. Alcoholic cirrhosis with ascites. 3. Anemia most likely secondary to alcohol use. 4. Bilateral atelectasis. 5. Hypertension. 6. Generalized weakness. 7. Anorexia. PLAN: The patient will be admitted to the medical-surgical floor and placed on telemetry for close monitoring. neuro checks q.4 hours. incentive spirometer and antibiotic coverage of Zosyn. As he has had diarrhea will also start probiotics Will get stool for WBCs, C difficile toxin as well as occult blood. recheck a CBC and CMP in the morning. consult Physical Therapy. Further treatments pending hospital course. Dictated by CHANCE Real for Germain Gamez MD This chart was documented by, CHANCE Real and accurately reflects the services performed, treatment plan and medical decisions as attested by the providers signature Germain Gamez MD. cc: CHANCE Real MD [facility]
[2019-01-01] MEDS ORDERED: ZOFRAN IV PRN (19:04)
[2019-01-01] MEDS ORDERED: TYLENOL PO PRN (19:04)
[2019-01-01] MEDS: LASIX IV SCH (19:37)
[2019-01-01] MEDS: ZOSYN 3.375 GM in NS 50 ML IV SCH ×2 (19:37→23:24)
[2019-01-01] MEDS: PROTONIX IV SCH (19:37)
--- NOTE | 2019-01-01 21:27 | HISTORY AND PHYSICAL ---
ADDENDUM: Patient seen and examined by myself, full note dictated and discussed with nurse practitioner. Patient notes he stopped smoking, states he stopped drinking about 2 weeks ago, has been having increasing swelling in his bilateral lower extremities and abdomen. Notes his abdomen started hurting. Having some shortness of breath. Appears the patient has developed cirrhosis. He has ascites. Will admit him, place him on IV Lasix, will add Aldactone and will follow. cc: Germain Gamez MD
[2019-01-02] MEDS: ZOSYN 3.375 GM in NS 50 ML IV SCH ×5 (02:42→21:32)
[2019-01-02 06:31] LABS: BASO# 0.03 X1000 (0.0-0.2); BASO% 0.3 % (0.0-0.8); EOS# 0.14 X1000 (0.0-0.7); EOS% 1.4 % (0.0-10.0); HEMOGLOBIN 13.4 g/dL (14.0-18.0); IMM GRAN# 0.03 X1000 (0.0-0.04); IMM GRAN% 0.3 % (0.0-0.5); LYMPH# 1.33 X1000 (1.2-3.4); MCH 37.6 PG (27-31); MCHC 35.3 g/dL (33-37); MCV 106.7 FL (81-99); MONO% 16.7 % (1.7-9.3); MPV 9.2 FL (7.4-10.4); NEUT# 6.98 X1000 (1.4-6.5); NEUT% 68.3 % (42.2-75.2); PLT 290 X1000 (130-400); RBC 3.56 XMIL (4.7-6.1); RDW 14.7 % (11.5-14.5); WBC 10.21 X1000 (4.8-10.8)
[2019-01-02 06:46] LABS: AGAP 13; ALBUMIN 2.8 g/dL (3.5-5.0); ALKALINE PHOSPHATASE 71 U/L (32-122); BUN 7 mg/dL (8-22); CALCIUM 8.4 mg/dL (8.8-10.2); CHLORIDE 98 mmol/L (98-107); COSMO 271; CREATININE 0.6 mg/dL (0.7-1.2); ESTIMATED GFR > 60; GLUCOSE 112 mg/dL (70-104); GOT 116 U/L (10-34); GPT 54 U/L (10-44); POTASSIUM 3.6 mmol/L (3.5-5.1); SODIUM 136 mmol/L (136-145); TCO2 25 mmol/L (25-35); TOTAL PROTEIN 5.7 g/dL (6.3-8.3)
[2019-01-02] MEDS: KLOR-CON PO SCH (08:28)
[2019-01-02] MEDS: LASIX IV SCH ×3 (08:28→19:46)
[2019-01-02] MEDS ORDERED: ALDACTONE PO SCH (09:00)
[2019-01-02] MEDS ORDERED: CULTURELLE PO SCH (09:00)
[2019-01-02 09:37] LABS: ANISOCYTOSIS 2+; EOS 1 % (1-10); LYMPHS 11 % (21-51); MONO 9 % (1-9); SEGS 79 % (42-75)
[2019-01-02 14:06] LABS: INR 1.34; PROTIME 17.6 Seconds (11.0-16.0)
[2019-01-02 14:23] LABS: IRON SATURATION 35 %; TIBC 149 ug/dL; TOTAL IRON 52 ug/dL (53-167); UNBOUND IRON 97 ug/dL (112-346)
[2019-01-02 14:33] LABS: FREE T4 1.52 ng/dL (0.93-1.70); TSH 3.07 uIUmL (0.27-4.20)
[2019-01-02 15:03] LABS: FERRITIN 2045 ng/mL (30-400)
[2019-01-02] MEDS: PROTONIX IV SCH (18:05)
[2019-01-02] MEDS: OXY IR PO PRN (18:05)
--- NOTE | 2019-01-02 23:42 | PROGRESS NOTE ---
DATE: 01/02/2019 SUBJECTIVE: Patient notes he is still having lots of swelling in his lower extremities, lots of swelling in his abdomen, pain in his abdomen. Denies any fevers or chills. Denies any dysuria. OBJECTIVE: Vital signs: Temperature 98 degrees, pulse 70, respiratory 20, BP 124/65. General: Patient is awake, alert, currently in no respiratory distress. HEENT: Normocephalic. Neck: Supple. CARDIOVASCULAR: Regular rate. Chest: Clear. Abdomen: Soft. Positive fluid wave. No peritonitis signs. Extremities: Moves all extremities. He has 2+ edema in his lower extremities. Skin: Warm, dry. No rashes. ASSESSMENT: 1. Ascites. 2. Alcoholic cirrhosis. 3. Anemia. 4. Bilateral atelectasis. 5. Hypertension. PLAN: We will continue patient in the hospital. Transfer him to [facility]. Get GI involved. Patient very well may need paracentesis. cc: Germain Gamez MD
--- NOTE | 2019-01-03 01:11 | GASTROENTEROLOGY CONSULTATION ---
DATE: 01/02/2019 REASON FOR CONSULTATION: Cirrhosis with ascites. HISTORY OF PRESENT ILLNESS: Mr. Cisco Montoya is a 63-year-old gentleman with hypertension, hyperlipidemia, and recent diagnosis of decompensated alcoholic cirrhosis with jaundice and lower extremity edema, who presents with 2 weeks of progressive abdominal distention and lower extremity edema. The patient was recently hospitalized at an outside facility after having a fall. He was discharged on 12/20/2018. Since then he has noticed progressive abdominal distention despite taking Lasix 20 mg once daily. Other associated symptoms include decreased appetite and early satiety. He reports having 1 black stool about a week ago. He says that he was drinking almost 1.5 L of wine per day up until 2 weeks ago when he stopped smoking and drinking. He denies any bright red blood per rectum, hematemesis, confusion, shortness of breath, chest pain. REVIEW OF SYSTEMS: As per HPI, otherwise 12-point review of systems is negative. PAST MEDICAL HISTORY: Hypertension, hyperlipidemia, cirrhosis and ascites. PAST SURGICAL HISTORY: None. FAMILY HISTORY: No family history of liver disease. SOCIAL HISTORY: The patient reports drinking about 3 L of wine in 2-1/2 days daily. I have drank "most of my life," he says. No drug use. MEDICATIONS: Potassium, Lasix. ALLERGIES: No known drug allergies. PHYSICAL EXAMINATION: Vital Signs: Temperature 98.9 degrees, heart rate 92, blood pressure 117/62, O2 saturation 99% on room air. General: The patient is awake, alert, oriented, no acute distress, chronically ill-appearing. HEENT: Sclerae with mild icterus. Moist mucous membranes. Neck: No JVD. No lymphadenopathy. Cardiac: Regular rate and rhythm. No murmurs. Lungs: Clear to auscultation bilaterally. Abdomen: Obese, distended, tympanic anteriorly with bulging flanks and ascites. Normoactive bowel sounds. Extremities: Lower extremities with 1-2+ edema up to the shins bilaterally. Neurologic: Nonfocal. Asterixis negative. LABORATORY DATA: White count is 10.2, hemoglobin 13.4, platelets of 290,000. INR of 1.34. Sodium 136, potassium 3.6, chloride 98, bicarbonate 25, BUN 7, creatinine 0.6, glucose 112, iron 322, TIBC 149, ferritin 2045. Total bilirubin 2.9, AST 116, ALT 54, alkaline phosphatase 71. Troponin negative. CK 69, albumin 2.8, lipase 32, vitamin B12 980, folate 4.5. UA negative. Alcohol negative. Chest x-ray shows bibasilar subsegmental atelectasis. ASSESSMENT AND PLAN: Mr. Cisco Montoya is a 63-year-old gentleman who presents with worsening decompensated alcoholic cirrhosis in the setting of recent alcohol use. He complains of increased abdominal distention and lower extremity edema. The patient denies ever having a paracentesis in the past, and been on low-dose Lasix. He was started on IV Lasix here in the hospital; however, given his decompensated liver disease I would prefer oral diuretics. We will switch him from IV Lasix and Aldactone to oral medications including 40 mg of Lasix and 100 mg of Aldactone. Low- sodium diet. We will get a diagnostic and therapeutic paracentesis tomorrow, as well as an abdominal ultrasound to verify cirrhosis and rule out hepatoma. The patient does not have any evidence of encephalopathy. No evidence of overt GI bleeding although he reports having a black stool 1 week ago. LFTs show 2:1 ratio of AST to ALT consistent with alcoholic liver disease. He had some mild coagulopathy, from cirrhosis vs nutritional. Hemoglobin is normal. He does have some folate deficiency, which we will replete. Thank you for this consultation. We will follow with you. Please call with any questions or concerns. RAMON
[2019-01-03 06:12] LABS: BASO# 0.04 X1000 (0.0-0.2); BASO% 0.4 % (0.0-0.8); EOS# 0.28 X1000 (0.0-0.7); EOS% 2.6 % (0.0-10.0); HEMATOCRIT 34.5 % (42.0-52.0); HEMOGLOBIN 12.1 g/dL (14.0-18.0); IMM GRAN# 0.04 X1000 (0.0-0.04); IMM GRAN% 0.4 % (0.0-0.5); LYMPH# 2.11 X1000 (1.2-3.4); LYMPH% 19.5 % (20.5-51.1); MCHC 35.1 g/dL (33-37); MCV 105.5 FL (81-99); MONO# 1.57 X1000 (0.11-0.59); MONO% 14.5 % (1.7-9.3); MPV 9.1 FL (7.4-10.4); NEUT# 6.78 X1000 (1.4-6.5); NEUT% 62.6 % (42.2-75.2); PLT 286 X1000 (130-400); RBC 3.27 XMIL (4.7-6.1); RDW 14.1 % (11.5-14.5); WBC 10.82 X1000 (4.8-10.8)
[2019-01-03 06:25] LABS: AGAP 10; ALB/GLOB RATIO 0.8; ALBUMIN 2.4 g/dL (3.5-5.0); ALKALINE PHOSPHATASE 57 U/L (32-122); BUN 6 mg/dL (8-22); CALCIUM 8.5 mg/dL (8.8-10.2); CHLORIDE 102 mmol/L (98-107); COSMO 273; CREATININE 0.6 mg/dL (0.7-1.2); ESTIMATED GFR > 60; GLUCOSE 95 mg/dL (70-104); GOT 81 U/L (10-34); GPT 41 U/L (10-44); POTASSIUM 3.1 mmol/L (3.5-5.1); SODIUM 138 mmol/L (136-145); TCO2 26 mmol/L (25-35); TOTAL BILIRUBIN 2.47 mg/dL (0.20-1.00); TOTAL PROTEIN 5.3 g/dL (6.3-8.3)
--- NOTE | 2019-01-03 09:47 | Diag Imaging Result Doc PS360 ---
EXAM: US ABDOMEN-COMPLETE 01/03/2019 HISTORY: evaluate cirrhosis ascites TECHNIQUE: Abdominal ultrasound COMMENT: The liver is hyperechoic and somewhat inhomogeneous in echotexture. There is ascites. There is antegrade flow in the portal vein. The gallbladder is clear and nontender. There is no evidence of biliary dilatation the common bile duct measuring less than 6 mm. The kidneys are without evidence of hydronephrosis or mass. The spleen is not well demonstrated. It was slightly enlarged at almost 14 cm at the time the previous examination of 12/19/2018. The pancreas is obscured as is the aorta. The inferior vena cava is normal in appearance. IMPRESSION: Ascites. Cirrhosis and minimal splenomegaly. Electronically signed by Adeel Hummel 01/03/2019 9:44 AM
--- NOTE | 2019-01-03 09:48 | Diag Imaging Result Doc PS360 ---
EXAM: US ABD PARACENTESIS W S/I 01/03/2019 HISTORY: ascites TECHNIQUE: Ultrasound-guided paracentesis in the right upper quadrant COMMENT: The risks and benefits of the procedure including the possibility of bleeding, infection, reaction to lidocaine, or puncture of hollow viscus was discussed with the patient and he agreed to the procedure. Following sterile preparation of the skin in the anterolateral right upper quadrant at about the level of the tip of the liver, the paracentesis catheter was placed and subsequently 2.6 L of straw-colored fluid was drained. The patient tolerated the procedure well and there are no immediate complications. The fluid was sent to the laboratory in its entirety. IMPRESSION: Successful ultrasound-guided paracentesis. Electronically signed by Adeel Hummel 01/03/2019 9:46 AM
[2019-01-03] MEDS: KLOR-CON PO SCH (09:58)
[2019-01-03 11:15] LABS: ALBUMIN BODY FLUID 0.6 g/dL; BODY FLUID SOURCE PERITONEAL FLUID; TOTAL PROT BODY FLUID 1.4 g/dL; WBC BF 244 /cumm
[2019-01-03 11:17] LABS: MONOS 80 %; POLYS 20 %
[2019-01-03] MEDS: OXY IR PO PRN (13:19)
[2019-01-03 13:26] LABS: HEPATITIS PROFILE ACUTE SEE COMMENTS
--- NOTE | 2019-01-03 14:50 | PROVIDER PROGRESS NOTE ---
Progress Note - - 01/03/2019 SUBJECTIVE: No acute overnight events. Afebrile. No N/V, CP, SOB, abdominal pain. Patient underwent diagnostic and therapeutic LVP with removal of 2.6L of ascitic fluid without complications. Patient reports intermittent dysphagia to solids for years. OBJECTIVE: Last Vital Signs Temp 98.3 F 01/03/19 11:08 Pulse 90 01/03/19 11:08 Resp 20 01/03/19 11:08 BP 120/75 01/03/19 11:08 Pulse Ox 99 01/03/19 11:08 Height 5 ft 10 in Weight 217 lb 4.8 oz GEN: chronic ill appearing, unkept HEENT: anicteric, poor dentition, MMM NECK: no jvd, LAD CV: RRR, no murmurs PULM: CTAB, no wheezing ABD: soft, NT; mild distension, paracentesis site c/d/i; decreased ascites EXT: 2+LE edema NEURO: nonfocal; no asterixis LABS: 01/02/19 01/03/19 01/03/19 13:34 05:40 05:40 WBC 10.82 H Hgb 12.1 L Plt Count 286 INR 1.34 Sodium 138 Potassium 3.1 L Chloride 102 Carbon Dioxide 26 BUN 6 L Creatinine 0.6 L Total Bilirubin 2.47 H AST 81 H ALT 41 Alkaline Phosphatase 57 Total Protein 5.3 L Albumin 2.4 L 01/03/19 01/03/19 09:07 09:07 Fluid Source PERITONEAL FLUID Fluid WBC 244 Fluid Polynuclear WBCs 20 Fluid Mononuclear WBCs 80 Fluid Total Protein 1.4 Fluid Albumin 0.6 US abdomen IMPRESSION: Ascites. Cirrhosis and minimal splenomegaly. A/P: Mr. Cisco Montoya is a 63-year-old gentleman who presents with worsening decompensated alcoholic cirrhosis with ascites and LE edema in the setting of continued alcohol use s/p LVP. No SBP. SAAG >1.1 consistent with portal hypertension. LFTs improving. Patient complains of longstanding dysphagia to solids. #Decompensated ETOH cirrhosis: CP-B - Ascites: s/p LVP: will start diuretics tomorrow; low Na diet, I/O - PSE: none prior - EV: no recent EGD; plan for EGD tomorrow given dysphagia - HCC: US today negative for hepatoma; repeat q6mo - OLT: low MELD; not a candidate given recent ETOH use - IMM: will need HAV/HBV vaccination eventually if non-immune #Dysphagia: unclear etiology; ddx includes esophagitis, GERD, luminal obstruction; less likely motility - recommend PPI - NPO after MN for diagnostic EGD tomorrow #ETOH abuse: counseled on cessation; thiamine, folate; needs eventual high protein calorie diet #Anemia: stable; folate deficit; no overt bleeding; starting folic acid #Constipation: recommend miralax as needed #Mild coagulopathy: 2/2 to cirrhosis #Hypokalemia: replete K Will follow with you. Please call with questions.
[2019-01-03] MEDS ORDERED: SODIUM CHLORIDE 0.9% INJ SCH (15:15)
[2019-01-03] MEDS ORDERED: PROTONIX IV SCH (15:15)
[2019-01-03] MEDS: FOLIC ACID PO SCH (20:06)
[2019-01-03] MEDS: VITAMIN B-1 PO SCH (22:20)
[2019-01-03] MEDS ORDERED: VITAMIN K 10 MG in NS 50 ML IV ONE (22:48)
[2019-01-04 06:34] LABS: INR 1.39; PROTIME 18.1 Seconds (11.0-16.0)
[2019-01-04] MEDS ORDERED: DIPRIVAN 1% ONE ×2 (06:43→10:27)
[2019-01-04] MEDS ORDERED: FENTANYL ONE (06:46)
[2019-01-04 07:25] LABS: AGAP 11; ALB/GLOB RATIO 0.9; ALBUMIN 2.4 g/dL (3.5-5.0); ALKALINE PHOSPHATASE 60 U/L (32-122); BUN 7 mg/dL (8-22); CALCIUM 7.6 mg/dL (8.8-10.2); CHLORIDE 100 mmol/L (98-107); COSMO 270; CREATININE 0.5 mg/dL (0.7-1.2); ESTIMATED GFR > 60; GLUCOSE 97 mg/dL (70-104); GOT 75 U/L (10-34); GPT 38 U/L (10-44); POTASSIUM 3.2 mmol/L (3.5-5.1); SODIUM 136 mmol/L (136-145); TCO2 25 mmol/L (25-35); TOTAL BILIRUBIN 2.52 mg/dL (0.20-1.00)
[2019-01-04] MEDS ORDERED: LASIX PO SCH (09:00)
[2019-01-04] MEDS ORDERED: ALDACTONE PO SCH (09:00)
[2019-01-04] MEDS: FOLIC ACID PO SCH (09:46)
[2019-01-04] MEDS: VITAMIN B-1 PO SCH (09:46)
[2019-01-04] MEDS ORDERED: PROTONIX IV SCH (11:16)
--- NOTE | 2019-01-04 11:35 | OPERATIVE NOTE ---
PROCEDURE DATE: 01/04/2019 PREOPERATIVE DIAGNOSES: 1. Dysphagia. 2. History of alcoholism and possible cirrhosis. 3. Anemia. POSTOPERATIVE DIAGNOSES: 1. Esophageal stricture at 20 cm from the incisors. This was dilated with 8, 9, 10 TTS balloon. 2. Esophagitis in the mid and distal esophagus, LA grade 1. 3. Z-line was at 42 cm. 4. No evidence of gastritis, likely portal hypertensive gastropathy on top of. This was biopsied. 5. Normal fundus, cardia, incisura. 6. Evidence of normal duodenal bulb and second portion of the duodenum. PROCEDURES PERFORMED: 1. Esophagogastroduodenoscopy with esophageal dilation with TTS balloon. 2. Gastric biopsy. SURGEON: Davon Calhoun M.D. ANESTHESIA: Monitored anesthesia care. ESTIMATED BLOOD LOSS: Minimal. COMPLICATIONS: None. SPECIMENS: Random gastric biopsy. DESCRIPTION OF PROCEDURE: After informed consent, the patient was explained the risks, benefits, indications, and alternatives to EGD. The risks of the procedure, including infection, bleeding, pain, trauma to the surrounding structures, perforation, were discussed with the patient among others, and he acknowledged and agreed to proceed. The patient was brought to the OR. He was turned in the left lateral position. A bite block was placed in the patient's mouth. After adequate monitored anesthesia care, the scope was introduced through the oral orifice and traversed all the way to the second portion of the esophagus. It showed evidence of a stricture at 20 cm from the incisors. The scope could not pass through the area, so we dilated with 8, 9, and 10 TTS dilator successfully. After dilation, the scope was able to pass through the area with minimal resistance. The mid and distal esophagus showed evidence of erythema and small erosions, suggesting reflux esophagitis LA grade 1. Z-line was at 42 cm. The scope was then advanced to the stomach which showed the evidence of a snake skin appearance, suggesting portal hypertensive gastropathy. There was evidence of some acute gastritis in the body and antrum. This was biopsied to rule out Helicobacter pylori. Retroflexion revealed normal fundus, cardia, incisura. The duodenal bulb and second portion of the duodenum appeared normal. I did not visualize any evidence of gastric or esophageal varices. The air was aspirated and the scope withdrawn. The proximal esophagus area after dilation had showed evidence of spontaneous bleeding, which had stopped. I did see a controlled mucosal tear from dilation, but no evidence of any transmural injury. The air was withdrawn. The patient was then monitored in the OR in stable condition. RECOMMENDATIONS: 1. The patient will be on full liquid diet for the next 2 days, and advance as tolerated. 2. The patient will be on Protonix twice daily. 3. The patient will be on MiraLAX twice daily for constipation. 4. The patient was counseled to quit alcohol completely. 5. The patient has anemia and constipation. He may benefit from outpatient colonoscopy. The above plans were discussed with the patient and family, and all questions were answered. Please call with further questions. cc: MD Lul López MD MTDD
[2019-01-04 13:22] VITALS: BP 119/63
[2019-01-04] MEDS: KLOR-CON PO SCH (14:46)
[2019-01-04] MEDS ORDERED: MIRALAX PO SCH (21:00)
--- NOTE | 2019-01-05 12:28 | DISCHARGE SUMMARY ---
ADMISSION DATE: 01/01/2019 DISCHARGE DATE: 01/04/2019 CONSULTATION DURING THIS ADMISSION: GI was consulted. Patient was seen by Dr. Vasquez. INVASIVE PROCEDURES DURING ADMISSION: 1. EGD was done by Dr. Calhoun. Please refer to the details of the report in the EMR. Briefly, the findings were esophageal stricture at 20 cm from the incisors. This was dilated. Esophagitis in the mid and distal esophagus. There was likely portal hypertensive gastropathy. 2. Ultrasound-guided thoracentesis was done by IR. IMAGING STUDIES OF SIGNIFICANCE: 1. Chest x-ray was done on presentation which showed bibasilar segmental atelectasis. 2. Ultrasound of the abdomen shows ascites, cirrhosis and minimal splenomegaly. 3. Ultrasound-guided paracentesis was done and 2.6 L was removed. ADMISSION DIAGNOSES: 1. Elevated liver enzymes. 2. Alcoholic cirrhosis with ascites. 3. Anemia. 4. Hypertension. DIAGNOSES AT TIME OF DISCHARGE: 1. Anasarca with ascites secondary to cirrhosis of the liver. The patient is status post paracenteses, 2.6 L was removed. The fluid analysis was reveals SAAG of more than 1.1 which is consistent with portal hypertension physiology. 2. Cirrhosis of the liver presumably due to alcohol induced is complicated with ascites and portal hypertensive gastropathy. 3. Macrocytic anemia likely due to alcohol abuse. 4. Alcohol abuse, cessation has been advised. 5. 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 6. Generalized weakness and deconditioning. The patient did have physical therapy. 7. Dysphagia secondary to esophageal stricture status post dilatation. 8. Portal hypertensive gastropathy noted on EGD. DISCHARGE MEDICATIONS: 1. Folic Acid 1 mg daily. 2. Furosemide 40 mg daily. 3. Thiamine 100 mg daily. 4. Spironolactone 100 mg daily. 5. Pantoprazole 40 mg b.i.d. PRESENTING COMPLAINT: Lower extremity edema and abdominal wall swollen. HISTORY OF PRESENTING COMPLAINT: Mr. Montoya is a 63-year-old male with history of alcohol abuse in the past complaining of leg swelling as well as abdominal girth swelling. The patient was evaluated initially at [facility] and was transferred over here to [facility] for higher level of care. HOSPITAL COURSE: Mr. Montoya was admitted to the medical floor and was seen by GI. Initial decision was made for a paracenteses which was done by IR without any complications. 2.6 L was removed. Fluid analysis was negative for SBP. SAG was more than 1.1 which was consistent with portal hypertension. The patient was seen by GI and EGD was also done. Please refer to the details of the report in the chart. Post EGD, Mr. Montoya continues to be fairly stable. He was able to tolerate his diet, does not have any more complaints. He is also tolerating well his current diuretic therapy. He is going to be discharged in stable condition, and he will follow up with Dr. Calhoun and/or Dr. Vasquez as well as patient's PCP Dr. Vora. At the time of the discharge, Mr. Montoya's blood pressure was 110/59, pulse 84, respiration is 18, and temperature is 98.1 degrees. There was not any acute changes on his physical exam. He still had some distended abdomen secondary to the ascites. All of the discharge instructions were discussed with her. The mother was at the bedside at the time of the encounter. She also voiced understanding of the recommendation of the discharge instructions. Specifically, we stressed the need for alcohol cessation. TIME SPENT: 37 minutes. cc: MD James Garcia DO Michael Kelso, MD Dr. Arora MTDD
== END 2019-01-04 16:25 | disposition home health service (06) | DRG 433 ==
LOC: P.ED 11:56 → P.MEDSURG 16:01 → SUATTDRO 16:01 → 4N 01-02 11:50
PROVIDERS: ATTEND Internal Medicine
CPT/HCPCS: 36415; 49083; 71020; 71046; 76700; 80053; 80074; 80307; 80320; 81001; 82042; 82055; 82550; 82607; 82728; 82746; 83540; 83550; 83690; 83735; 83880; 84157; 84439; 84443; 84484; 85025; 85610; 87070; 87205; 88305; 88312; 89051; 93005; 94761; 94799; 97162; 97530; 99285; A9270; C1726; C9113; G0480; G6040; J1940; J2405; J2543; J3010; J3430; S0164

== ENCOUNTER 2019-06-27 06:34 | Observation (INO) ==
[2019-06-27 07:52] LABS: INR 1.16
[2019-06-27 07:53] LABS: PTT 39.2 Seconds (22.3-41.8)
--- NOTE | 2019-06-27 09:13 | Diag Imaging Result Doc PS360 ---
EXAM: US LIVER BIOPSY W S/I 06/27/2019 HISTORY: cirrhosis TECHNIQUE: Ultrasound-guided liver biopsy. COMMENT: The risks and benefits of the procedure including the possibility of bleeding, infection, or reaction to lidocaine were discussed with the patient and he agreed to the procedure. Following sterile preparation the skin and administration of 1% lidocaine to the skin and deeper soft tissues anteriorly, the left hepatic lobe was biopsied 4 times with a [email or web address] 18-gauge coaxial core biopsy needle. There are no immediate complications and the patient tolerated the procedure well. IMPRESSION: Successful ultrasound-guided liver biopsy. Electronically signed by Adeel Hummel 06/27/2019 9:11 AM
[2019-06-27] MEDS ORDERED: ULTRAM PO ONE (09:45)
[2019-06-27] MEDS ORDERED: ULTRAM ONE (10:01)
--- NOTE | 2019-06-27 10:23 | EKG Report ---
Test Performed on : 06/27/2019 10:01:38 AM Test Reason : post liver bx Blood Pressure : / mmHG Vent. Rate : 072 BPM Atrial Rate : 072 BPM P-R Int : 160 ms QRS Dur : 138 ms QT Int : 438 ms P-R-T Axes : 043 -32 032 degrees QTc Int : 479 ms Normal sinus rhythm. Left axis deviation Right bundle branch block Septal infarct (cited on or before 18-DEC-2018) Abnormal ECG When compared with ECG of 01-JAN-2019 13:26, Right bundle branch block is now present Questionable change in initial forces of Anterior leads Confirmed by Cheryl Castaneda MD ([id number]) on 06/27/2019 12:03:01 PM
[2019-06-27] MEDS ORDERED: NS 1,000 ML IV ONE (11:45)
[2019-06-27 12:00] LABS: BASO# 0.03 X1000 (0.0-0.2); BASO% 0.6 % (0.0-0.8); EOS# 0.11 X1000 (0.0-0.7); EOS% 2.1 % (0.0-10.0); HEMATOCRIT 41.1 % (42.0-52.0); LYMPH% 23.1 % (20.5-51.1); MCHC 34.1 g/dL (33-37); MCV 96.9 FL (81-99); MONO# 0.87 X1000 (0.11-0.59); MONO% 16.7 % (1.7-9.3); MPV 9.9 FL (7.4-10.4); NEUT# 2.99 X1000 (1.4-6.5); NEUT% 57.5 % (42.2-75.2); PLT 155 X1000 (130-400); RBC 4.24 XMIL (4.7-6.1); RDW 13.9 % (11.5-14.5)
[2019-06-27 12:11] LABS: AGAP 10; ALBUMIN 3.2 g/dL (3.5-5.0); ALKALINE PHOSPHATASE 70 U/L (32-122); BUN 9 mg/dL (8-22); CALCIUM 9.8 mg/dL (8.8-10.2); CHLORIDE 105 mmol/L (98-107); COSMO 275; CREATININE 0.6 mg/dL (0.7-1.2); ESTIMATED GFR > 60; GLUCOSE 145 mg/dL (70-104); GOT 33 U/L (10-34); GPT 17 U/L (10-44); POTASSIUM 4.2 mmol/L (3.5-5.1); SODIUM 137 mmol/L (136-145); TCO2 22 mmol/L (25-35); TOTAL BILIRUBIN 1.06 mg/dL (0.20-1.00); TOTAL PROTEIN 6.4 g/dL (6.3-8.3)
--- NOTE | 2019-06-27 13:09 | HISTORY AND PHYSICAL ---
PRIMARY CARE PHYSICIAN: Dr. James Vora. MANAGED CARE ANALYST: Dr. Calhoun. CHIEF COMPLAINT: The patient was here for an outpatient ultrasound guided liver biopsy. Once he returned from the procedure, he began having diaphoresis, nausea, complained of left-sided chest pain and blood pressure dropped to 89/52. EKG revealed a new right bundle-branch block. So, he will be admitted for further evaluation and treatment. HISTORY OF PRESENTING ILLNESS: This is a 63-year-old male who presented to [facility] outpatient surgery for an ultrasound-guided liver biopsy this morning by Dr. Calhoun. After he returned back to outpatient surgery from the procedure he was noted to become diaphoretic, nauseated, complained of left-sided chest pain that was nonradiating. His blood pressure was 89/52. They did an EKG that showed normal sinus rhythm at 72 with left axis deviation, a right bundle branch block and a septal infarct and the right bundle branch block is new on this EKG, so he will be admitted for further evaluation and treatment. PAST MEDICAL HISTORY: Hypertension, alcoholic cirrhosis with ascites, portal hypertension and anemia. PAST SURGICAL HISTORY: None. FAMILY HISTORY: Reviewed and noncontributory. SOCIAL HISTORY: Currently lives with family. He quit smoking cigarettes in December He was a heavy drinker but quit drinking alcohol in December 2018 and denies any illicit drug use. ALLERGIES: Naproxen and corticosteroid. HOME MEDICATIONS: Home medications will all be held at this time as he is NPO and will be restarted when deemed appropriate by attending. LABORATORY DATA: We are obtaining a basic metabolic panel, hepatic function test. We had a PT/INR of 15 and 1.16. Liver biopsy ultrasound showed an impression of a successful ultrasound- guided liver biopsy. His EKG showed normal sinus rhythm with a left axis deviation and a right bundle branch block that was new at 72. REVIEW OF SYSTEMS: He denied any fever, chills, blurred vision. He was diaphoretic, had some left-sided chest pain that was nonradiating and nausea all of which he states have resolved at the time of this assessment. He denied any abdominal pain, constipation, diarrhea, burning or hurting with urination. PHYSICAL EXAMINATION: VITAL SIGNS: When he arrived, he had a temperature of 99.7 degrees, pulse 82, respirations 16, blood pressure 119/63, saturating 95% on room air. When he returned from the procedure this morning, he had a blood pressure of 89/52, currently it is up to 118/60 without any intervention. GENERAL: This is a 63-year-old male who is lying in the bed and answers questions appropriately. HEENT: Normocephalic, atraumatic. Normal ENT inspection. Oropharynx and nares are clear. EYES: Pupils are equal, round, reactive to light and accommodation. Extraocular movements are intact. NECK: Normal inspection normal range of motion. LUNGS: Clear to auscultation bilaterally with equal lung expansion and chest wall movement. HEART: With regular rate and rhythm. No murmurs, rubs, or gallops. ABDOMEN: Soft, nontender, nondistended. Bowel sounds are present x4 quadrants. MUSCULOSKELETAL: He has 5/5 strength x4 extremities. NEUROLOGICAL: The cranial nerves 2-12 appear grossly intact. ASSESSMENT: 1. Chest pain. 2. New right bundle-branch block. 3. Status post ultrasound-guided liver biopsy this a.m. 4. Alcoholic cirrhosis with ascites. 5. Hypotension now resolved. PLAN: He will be admitted to the PVC unit, placed on telemetry, held n.p.o. We will consult GI and cardiology. Place on normal saline at 100 mL an hour. Check an echocardiogram today. Check a set of cardiac enzymes with troponin. We will recheck a CBC and CMP in the a.m. Further orders after seen by attending and by consultants. Dictated by CHANCE Davis for Lul Alamo MD cc: CHANCE Davis MD Thomas E. Lockard, DO
[2019-06-27] MEDS ORDERED: ZOFRAN PO PRN (14:07)
[2019-06-27] MEDS ORDERED: ULTRAM PO PRN (14:07)
--- NOTE | 2019-06-27 14:49 | PROGRESS NOTE ---
Briefly, this is a patient with known cirrhosis who is here for an elective biopsy, which was done today. The patient came in for evaluation. He was admitted for treatment. Post biopsy, he developed pain in his epigastrium, at least that is what he told me but apparently he told nursing staff he had pain in his chest, nurse practitioner, pain in the left side of his chest. No history of cardiac disease. His EKG showed a right bundle branch block but also looked like possible ischemic changes in the septal leads, V1, V2. No previous cardiac disease that we are aware of. When I examined him, he was calm. No further chest pain. Everything had resolved. Really without any particular treatment and, again, he complained more of pain in his epigastrium than anywhere else. We will place him in observation for treatment and follow closely. We will get serial enzymes. Get a CT just to make sure that there is no major issue, a couple more cardiac enzymes, and follow. I think we can let him eat. We will follow closely. This is a face- to-face encounter note with Claire Barker. cc: Lul Alamo MD
--- NOTE | 2019-06-27 15:31 | CARDIOLOGY CONSULTATION ---
DATE: 06/27/2019 HISTORY OF PRESENT ILLNESS: Mr. Montoya is a 63-year-old gentleman, who came in as an outpatient to have a liver biopsy for diagnosis of cirrhosis. Underwent liver biopsy subsequently. He had left-sided chest pain, broke out in a sweat. Had also low blood pressure 89/52. Electrocardiogram revealed right bundle branch block which was new; however, there were no ST-T changes to suggest ischemia or infarction. First set of cardiac enzymes were negative. Patient was admitted. At the time of my examination, patient was pain-free, blood pressure 119/63. He denies having had any previous cardiac history. There are no palpitations or dizziness in the past. REVIEW OF SYSTEM: General: A 14 point review of systems was done. Gastrointestinal system: There is no history of nausea, vomiting. There is no history of hematemesis or melena. Central nervous system: No focal weakness to suggest a CVA or TIA. Genitourinary system: There is no dysuria or hematuria. PAST MEDICAL HISTORY: 1. Hypertension. 2. Cirrhosis. 3. Portal hypertension. 4. Upper gastrointestinal endoscopy done per patient. There were no ulcers or varices noted. He is also followed at [facility]. 5. Chronic alcoholic; quit drinking and smoking. HOME MEDICATIONS: Include potassium supplements, folic acid, Lasix 40 mg a day, thiamine, spironolactone 100 mg, Protonix 40 b.i.d., lactulose 20, tramadol 50, Bentyl. ALLERGIES: He is allergic to Naprosyn and steroids. PHYSICAL EXAMINATION: Vital Signs: Blood pressure 118/63. Cardiovascular system: Normal jugular venous pressure. First and second heart sounds were heard. There was no S3 gallop. Respiratory system: Normal air entry. There is no crepitation or rhonchi. Abdomen: Soft, nontender. Bowel sounds were heard. Central nervous system: Alert and oriented, was moving all 4 extremities. Extremities: Examination of extremities revealed no pedal edema. HEENT: Atraumatic, normocephalic. Pupils were reacting to light. ASSESSMENT AND PLAN: Mr. Cisco Montoya is a 63-year-old gentleman with history of alcoholic cirrhosis, ascites, portal hypertension, who underwent a biopsy of his liver today. Postprocedure he had retrosternal chest discomfort associated with drop in blood pressure. Significant diaphoresis. This is likely to be vasovagal, however his electrocardiogram revealed right bundle branch block. This is new. First set of cardiac enzymes were negative. He is at the present time pain-free. RECOMMENDATIONS: 1. Will get serial cardiac enzymes. 2. We will get an echocardiogram to assess cardiac and valvular function. 3. We will set him up to undergo a Cardiolite stress test to assess for and rule out ischemia. cc: MD Lul Hernandez MD
--- NOTE | 2019-06-27 15:36 | ECHO REPORT ---
ORDER DATE: 06/27/2019 INDICATION: CVA. FINDINGS: 1. Right atrium is mildly enlarged at 4.2 cm. 2. Trace tricuspid regurgitation. RV systolic pressure 26. 3. Normal RV size and systolic function. 4. No significant pulmonic insufficiency. 5. Moderate left atrial enlargement with a volume index of 38. 6. No mitral valve prolapse. Mild mitral regurgitation. No evidence of mitral stenosis. 7. Normal LV size, end-diastolic dimension of 5.4. Normal wall thicknesses with a posterior and interventricular septal wall thickness of 1.0 cm each. The LV systolic function is difficult to estimate. It appears to be on the order of 45%. There do appear to be wall motion abnormalities in the anterior septum, as well as the apex. Again, endocardial border resolution is difficult on this study. Estimated ejection fraction of 45%. 8. Aortic valve opens well. No evidence of stenosis or insufficiency. 9. Aorta appears normal in visualized segments. 10. No pericardial effusion seen. cc: MD Lul Sanders MD
--- NOTE | 2019-06-27 16:23 | Diag Imaging Result Doc PS360 ---
EXAM: CT ABDOMEN IV CONTRAST ONLY INDICATION: sp us guided biopsy TECHNIQUE: This exam was performed using automated exposure control, adjustment of mA or kV according to patient size, and/or use of iterative reconstruction technique. COMPARISON: None. FINDINGS: There are calcified granulomata at the left lung base. There are calcified granulomata in the liver and spleen. The liver exhibits a nodular contour suggesting cirrhosis. There is trace free fluid around the liver and there are a couple of tiny droplets of gas anterior to the left hepatic lobe that are assumed to be related to the ultrasound-guided biopsy performed earlier today. There is no evidence of significant hematoma. There are a couple of small hypodense foci involving the right and left hepatic lobes that are nonspecific but may represent tiny cysts. The largest is in the right hepatic lobe on image 24 series 4 measuring up to 9.5 mm. The spleen is mildly enlarged measuring up to 14.3 cm in craniocaudal length. The pancreas and adrenal glands are unremarkable. There are a few prominent epigastric varices. The kidneys are essentially unremarkable. The visualized abdominal segments of the GI tract are essentially unremarkable. There is extensive aortoiliac atherosclerotic calcification and there is an infrarenal abdominal aortic aneurysm measuring up to 3.8 x 3.6 cm axially. IMPRESSION: 1.Cirrhotic liver. 2.Mild splenomegaly and a few epigastric varices. 3.Trace ascites tracking around the liver. No significant hematoma identified status post recent ultrasound-guided liver biopsy. 4.Infrarenal abdominal aortic aneurysm. 5.Other incidental/nonacute findings detailed above. Electronically signed by Ten Claire 06/27/2019 4:21 PM
[2019-06-27] MEDS ORDERED: PROTONIX PO SCH (19:00)
[2019-06-27] MEDS: LACTULOSE PO SCH (20:30)
[2019-06-27] MEDS ORDERED: BENTYL PO SCH (21:00)
[2019-06-28 07:44] LABS: BASO# 0.04 X1000 (0.0-0.2); BASO% 0.7 % (0.0-0.8); EOS% 3.4 % (0.0-10.0); HEMATOCRIT 41.2 % (42.0-52.0); HEMOGLOBIN 13.9 g/dL (14.0-18.0); LYMPH# 1.69 X1000 (1.2-3.4); LYMPH% 28.9 % (20.5-51.1); MCH 32.6 PG (27-31); MCHC 33.7 g/dL (33-37); MCV 96.7 FL (81-99); MONO# 0.97 X1000 (0.11-0.59); MONO% 16.6 % (1.7-9.3); MPV 9.8 FL (7.4-10.4); NEUT# 2.94 X1000 (1.4-6.5); NEUT% 50.4 % (42.2-75.2); PLT 146 X1000 (130-400); RBC 4.26 XMIL (4.7-6.1); RDW 13.9 % (11.5-14.5); WBC 5.84 X1000 (4.8-10.8)
[2019-06-28 07:57] LABS: AGAP 9; ALBUMIN 3.2 g/dL (3.5-5.0); ALKALINE PHOSPHATASE 72 U/L (32-122); BUN 9 mg/dL (8-22); CALCIUM 9.6 mg/dL (8.8-10.2); CHLORIDE 107 mmol/L (98-107); COSMO 275; CREATININE 0.6 mg/dL (0.7-1.2); ESTIMATED GFR > 60; GLUCOSE 114 mg/dL (70-104); GOT 30 U/L (10-34); GPT 16 U/L (10-44); POTASSIUM 4.4 mmol/L (3.5-5.1); SODIUM 138 mmol/L (136-145); TCO2 22 mmol/L (25-35); TOTAL BILIRUBIN 1.03 mg/dL (0.20-1.00); TOTAL PROTEIN 6.5 g/dL (6.3-8.3)
[2019-06-28] MEDS: LACTULOSE PO SCH (08:15)
[2019-06-28] MEDS ORDERED: VITAMIN B-1 PO SCH (09:00)
[2019-06-28] MEDS ORDERED: ALDACTONE PO SCH (09:00)
[2019-06-28] MEDS ORDERED: FOLIC ACID PO SCH (09:00)
[2019-06-28] MEDS ORDERED: KLOR-CON PO SCH (09:00)
[2019-06-28] MEDS ORDERED: LASIX PO SCH (09:00)
[2019-06-28 11:59] VITALS: BP 126/70
[2019-06-28] MEDS ORDERED: LEXISCAN ONE (12:44)
--- NOTE | 2019-06-28 15:47 | GASTROENTEROLOGY CONSULTATION ---
DATE: 06/28/2019 ATTENDING PHYSICIAN: Dr. Alamo. PRIMARY CARE PHYSICIAN: Dr. James Vora. REASON FOR CONSULTATION: Liver cirrhosis, history of alcoholism. HISTORY OF PRESENT ILLNESS: Mr. Montoya is a 63-year-old male who was admitted yesterday to [facility] from outpatient surgery after having ultrasound-guided liver biopsy. The patient has history of alcoholic cirrhosis. He quit drinking in December 2018. He has been following up with Dr. Vic Yates at [facility] for liver cirrhosis. He has liver cirrhosis associated with a history of alcoholism and liver cirrhosis is complicated with ascites, portal hypertension, anemia. He had a chronic liver disease workup as an outpatient which showed evidence of positive antismooth muscle antibody. He was sent for an ultrasound-guided liver biopsy as an outpatient. The liver biopsy was done by Dr. Hummel. According to the report, the left hepatic lobe was biopsied 4 times. After the procedure the patient had an episode of diaphoresis, abdominal pain, left-sided chest pain, mild transient hypotension. He had an EKG which showed evidence of new right bundle branch block and some ST changes in V1 and V2 leads. He was admitted to the hospitalist from outpatient surgery. Cardiology was consulted. Dr. Hawthorne has seen the patient. His initial troponins have been negative. He is scheduled for stress test today. PAST MEDICAL HISTORY: Alcoholic liver cirrhosis, quit in December 2018, ascites, portal hypertension, anemia, hypertension. PAST SURGICAL HISTORY: The patient had an EGD which showed: 1. Esophageal stricture at 20 cm from the incisors. This was dilated with 8, 9, 10 TTS balloon. 2. Esophagitis in the mid and distal esophagus, LA grade 1. 3. Portal hypertensive gastropathy. 4. Gastrography at that time showed chronic inactive gastritis and H. pylori negative. FAMILY HISTORY: No history of liver disease in the family. SOCIAL HISTORY: He lives with family. He quit smoking cigarettes in December. He was a very heavy alcoholic, quit alcohol in December 2018. Denies any history of illicit drug abuse. I spoke to the family at bedside. ALLERGIES: Naproxen, corticosteroid. MEDICATIONS AT HOME: Include lactulose 30 mL p.o. b.i.d., Zofran 4 mg as needed once daily, tramadol 50 mg once daily as needed, and Bentyl 10 mg at bedtime. He has also been on Lasix and Aldactone as an outpatient. MEDICATIONS IN THE HOSPITAL: Bentyl 10 mg at bedtime, folic acid 1 mg every day, Lasix 40 mg daily, lactulose 30 mL p.o. b.i.d., Zofran 4 mg p.o. daily as needed, Protonix p.o. b.i.d., potassium chloride 10 mg once daily, spironolactone 100 mg daily, thiamine 100 mg once daily, tramadol 50 mg daily as needed. The patient was given some fluids 100 mL/hour. The patient is currently n.p.o. for stress test today. REVIEW OF SYSTEMS: Denies any fevers, rigors, or chills. Denies any current chest pain, nausea, or vomiting. Had some chest pain yesterday. Denies any problems of heart disease. Denies any nausea, vomiting, vomiting blood, passing blood in the stools. Denies any neurologic complaints. Has a history of arthritis. PHYSICAL EXAMINATION: Vital Signs: Temperature of 98.3, pulse rate of 74, respiratory rate of 18, BP 111/62, saturating 100% on room air. Body weight of 198 pounds, BMI 28.4 kg/m2. General: Moderately built, moderately nourished, lying in the bed, in no acute distress. HEENT: Mild pallor. No icterus. Pupils equal, reactive to light. Neck: Supple. Abdomen: Discomfort in the epigastrium from recent biopsy. No rebound or guarding. Extremities: No cyanosis, clubbing. Neurologic: Alert, awake, oriented x3. LABS: Hemoglobin and hematocrit is 13.9 and 41, white count 5.4, platelet count of 146,000. Sodium 130, potassium 4.4, chloride 107, bicarb 22, anion gap 9, BUN of 9, creatinine 0.6, glucose of 114, calcium is 9.6, total bilirubin is 1.03, AST 30, ALT 16, alkaline phosphatase 72, total protein is 6.5, albumin of 3.2. IMPRESSIONS AND PLAN: 1. Alcoholic liver cirrhosis. The patient has quit alcohol in December 2018. Continue multivitamin once daily. 2. History of ascites. Currently ascites has improved. We may be able to discontinue his Lasix and Aldactone as an outpatient. Continue a low sodium diet of less than 2 g in 24 hours and restrict free fluid to less than 1.5 L in 24 hours. 3. Mild anemia. Continue watch for now. 4. Abdominal pain after the liver biopsy. It is well controlled now. His CT scan done after the biopsy showed evidence cirrhotic liver, mild splenomegaly, and a few epigastric varices, and trace ascites tracking around the liver. No significant hematoma identified status post recent ultrasound with liver biopsy. He had evidence of infrarenal abdominal aortic aneurysm measuring 3.8 [address] scan showed evidence of multiple tiny cysts in the liver. Aware. 6. Chest pain, diaphoresis, transient hypotension, and EKG changes. He is scheduled for a stress test today. He has been followed by Dr. Hawthorne. 7. Portal hypertension and evidence of varices on imaging, but no evidence was seen on EGD. Continue to follow with Dr. Yates at [facility] hepatology division. 8. Esophageal stricture. Continue PPIs b.i.d. We may do an EGD with interval dilation of the esophageal stricture if symptomatic. 9. Gastrointestinal prophylaxis. PPIs. 10. Bowel regimen with Lactulose. 11. The above plans were discussed with the patient and family and all questions answered. I will have the patient follow up with me in the clinic in 8 weeks of discharge. Please call us with any further questions. cc: MD Lul López MD Thomas E. Lockard, DO Brendan McGuire, MD Ashish K. Basu, MD [facility]ST[facility] MEDICAL CENTERDanielle
--- NOTE | 2019-06-28 15:49 | Diag Imaging Result Document ---
PROCEDURE NAME: MYOCARDIAL PERF SCAN, STR/REST - 06/28/2019 PROCEDURE: Lexiscan Cardiolite stress test. SUMMARY: 1. Lexiscan by Dr. Alamo. 2. Following Lexiscan infusion, Cardiolite was injected; 14.3 mCi of Cardiolite was injected for the rest phase, 40.2 mCi of Cardiolite was injected for the stress phase. 3. Gated SPECT images were obtained in standard views. 4. Images revealed normal left ventricular cavity size. 5. There is a moderate size severe grade, fixed defect in the left ventricular apex suggestive of infarct or scar. 6. There is no definite evidence of ischemia. 7. Left ventricular ejection fraction by gated SPECT was 57%. 8. There is apical hypokinesis. CONCLUSIONS: 1. No chest pain. 2. Negative Lexiscan stress electrocardiogram. Stress test by Dr. Alamo. 3. Myocardial perfusion images revealed no evidence of ischemia. 4. There is severe grade, moderate size fixed defect in the left ventricular apex diagnostic of infarct or scar. 5. Left ventricular ejection fraction by gated SPECT was 57%. Apical hypokinesis noted. cc: MD Tete Hernandez PA
--- NOTE | 2019-06-29 13:29 | DISCHARGE SUMMARY ---
ADMISSION DATE: 06/27/2019 DISCHARGE DATE: 06/28/2019 SUBJECTIVE: Patient has no major complaints. OBJECTIVE: Vital signs: Blood pressure 126/70, heart rate 94, respiratory rate 18, temperature 98.3 degrees. Cardiovascular: Regular rate and rhythm. Pulmonary: Bilateral breath sounds clear to auscultation. Gastrointestinal: Soft, nontender, nondistended. Bowel sounds are positive. LABORATORY DATA: White count is 5, hemoglobin and hematocrit 13 and 41, platelets 146,000. Basic was normal. DISCHARGE DIAGNOSES: Atypical chest pain, maybe just post biopsy. HOSPITAL COURSE: Admit date was 06/27/2019, discharge date 06/28/2019. The patient underwent biopsy and then developed chest pain. Echocardiogram showed an EF of 45%, which is a little bit on the low side. No major valvular abnormalities. Abdominal CT showed no hemorrhage, but he did have cirrhosis for which he had a liver biopsy earlier. Cardiology was consulted because he had a new onset right bundle branch block, questionable Q-waves in his anterior and septal leads. Enzymes are negative. He did have a low blood pressure. He underwent stress testing, which I completed and felt to be he had an infarct or scar, and EF was normal although he did have some apical hypokinesis but Cardiology felt that the patient could be discharged and followed up as an outpatient. He does not have any area of reversibility, but I am not sure if he has ever had a catheterization. That may have to be considered prior to transplant, but that may need to be organized with his transplant doctors, which is DR. Yates in [facility]. DISCHARGE CONDITION: Stable. Continue his regular medications and follow closely. DISCHARGE MEDICATIONS: 1. Bentyl 10 at bedtime. 2. Klor-Con 10 daily. 3. Lactulose 30 b.i.d. 4. Ultram 50 daily. 5. Zofran 4 daily. 6. Aldactone 100 daily. 7. Folic acid 1 daily. 8. Lasix 40 daily. 9. Protonix 40 b.i.d. 10. Thiamine daily. cc: Lul Alamo MD
== END 2019-06-28 16:10 | disposition home or self-care (01) ==
LOC: 3N 06:34 → OPS 06:34 → SUATTDRO 13:18
PROVIDERS: ADMIT Internal Medicine; ATTEND Internal Medicine